=== PATIENT | female | born 1955 | race Two or more races ===

== ENCOUNTER 2019-11-25 07:49 | Inpatient (IN) | payer OTHER ==
[2019-11-25] VITALS (33 sets, daily range): BP systolic 99–155; BP diastolic 57–97
[~2019-11-25] VITALS: Ht 170.2 cm; Wt 103.0 kg
[~2019-11-25 07:49] MED LIST: ceFAZolin sod 1 GM in NS 55 ML IVPB ONE
[2019-11-25] MEDS ORDERED: fentaNYL 100 mcg/2 mL IV ONE ×2 (09:02→12:29)
[2019-11-25] MEDS ORDERED: Midazolam 2mg/2ml Inj ONE (09:02)
[2019-11-25] MEDS ORDERED: Rocuronium Bromide 50mg/5ml Inj IV ONE (09:36)
[2019-11-25] MEDS ORDERED: Succinylcholine 20mg/ml 10ml vial ONE (09:36)
[2019-11-25] MEDS ORDERED: Lidocaine 1% MPF 10mg/ml 5ml ONE (09:39)
[2019-11-25] MEDS ORDERED: Thrombin 5000 units TOPIC ONE ×3 (10:00→14:38)
[2019-11-25] MEDS ORDERED: Gelfoam Size TOPIC ONE (10:31)
[2019-11-25] MEDS ORDERED: Bupivacaine w/Epi 0.5% 30ml Vial INJ ONE (10:32)
[2019-11-25] MEDS ORDERED: Bacitracin 50000 Units Vial ONE (10:32)
[2019-11-25] MEDS ORDERED: Vancomycin 1gm vial IVPB ONE (10:32)
--- NOTE | 2019-11-25 10:59 | Anethesia Preoperative Eval ---
Anesthesia Pre-op PMH/ROS General Date of Evaluation: Nov 25, 2019 Time of Evaluation: 10:51 Anesthesiologist: Giuseppe ASA Score: ASA 2 Mallampati Score Class I : Soft palate, uvula, fauces, pillars visible Class II: Soft palate, uvula, fauces visible Class III: Soft palate, base of uvula visible Class IV: Only hard plate visible Mallampati Classification: Class II Surgeon: Dameon Diagnosis: Cervical radiculopathy Surgical Procedure: ACDF Anesthesia History: none Family History: no anesthesia problems Allergies: Coded Allergies: Morphine (Verified Allergy, Severe, Hallucinations, 11/25/19) Benadryl (Verified Allergy, Intermediate, Rash , 11/25/19) Codeine (Verified Allergy, Intermediate, Shortness of Breath nausea, ) Medications: see eMAR Patient NPO?: Yes Past Medical History Pulmonary: Denies: asthma, COPD, NEGRO, other Gastrointestinal/Genitourinary: Reports: GERD; Denies: CRI, ESRD, other Neurologic/Psychiatric: Reports: depression/anxiety, other - chronic pain; Denies: dementia, CVA, TIA Endocrine: Denies: DM, hypothyroidism, steroids, other HEENT: Denies: cataract (L), cataract (R), glaucoma, [place] (L), [place] (R), other Hematology/Immune: Denies: anemia, DVT, bleeding disorder, other Musculoskeletal/Integumentary: Reports: OA; Denies: RA, DJD, DDD, edema, other Other: obesity PMH Narrative: as above PSxH Narrative: Cervical spine fusion treatment for pelvic Fx and lower extremity trauma Anesthesia Pre-op Phys. Exam Physician Exam Last Vital Signs Date Time Temp Pulse Resp B/P (MAP) Pulse Ox O2 Delivery O2 Flow Rate FiO2 11/25/19 08:47 Room Air 11/25/19 08:43 97.1 69 18 121/79 (93) 96 Constitutional: NAD Neurologic: CN 2-12 intact Cardiovascular: RRR, no M/R/G Respiratory: CTA Gastrointestinal: S/NT/ND Airway Exam Mallampati Score: Class II MO: limited Neck: stiff ROM: limited Teeth: missing Dentures: no upper, no lower Anesthesia Pre-op A/P Labs see chart Studies Pre-op Studies: EKG - NSR, CXR - WNL Risk Assessment & Plan Assessment: ASA 2 Plan: GA with ETT, neuromonitoring Status Change Before Surgery: No Pre-Antibiotics Drug: Ancef 2gr. Given Within 1 Hr of Incision: Yes Time Given: 12:35 Geovani Chin MD Nov 25, 2019 10:59
[2019-11-25] MEDS ORDERED: LR 1000ml ONE (11:00)
[2019-11-25] MEDS ORDERED: Sterile Water Irrig 1000ml IRRIG ONE (11:00)
[2019-11-25] MEDS ORDERED: propofoL 1,000mg/100ml IV ONE (11:00)
[2019-11-25] MEDS ORDERED: Acetaminophen (Non formulary) 100 ML IV ONE (11:00)
--- NOTE | 2019-11-25 11:58 | Pre-Procedure Note/Attestation ---
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 I attest that, if there was a reasonable possibility of needing a blood transfusion, the patient (or the patient's legal financial services sales representative) was given the [facility] standardized written summary, pursuant to the Eric Oscar Blood Safety Act ([place] Health and Safety Code # 1645, as amended). I attest that I re-evaluated the patient just prior to the surgery and that there has been no change in the patient's H&P, except as documented below: Agapito Xiao MD Nov 25, 2019 11:58
[2019-11-25] MEDS ORDERED: Ketorolac 30mg Inj ONE (12:51)
[2019-11-25] MEDS ORDERED: Glycopyrrolate 0.2mg/ml 1ml Vial ONE (12:51)
[2019-11-25] MEDS ORDERED: NS Irrig 1000ml IRRIG ONE (13:11)
[2019-11-25] MEDS ORDERED: Heparin 5000 units/ml inj ONE (13:40)
[2019-11-25] MEDS ORDERED: Surgicel 4in x 8in TOPIC ONE (14:44)
[2019-11-25] MEDS ORDERED: Milk of Magnesia 30ml Ud ORAL PRN (15:00)
[2019-11-25] MEDS ORDERED: Omnipaque 350 100ml vial INJ PRN ×2 (15:30)
--- NOTE | 2019-11-25 16:42 | Brief Operative Note ---
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
[2019-11-25] MEDS ORDERED: Metoclopramide 10mg/2ml Inj IVP PRN (16:45)
[2019-11-25] MEDS ORDERED: LR 1000ml 1,000 ML IVLG SCH (17:11)
[2019-11-25] MEDS ORDERED: Midazolam 2mg/2ml Inj IVP PRN (17:15)
[2019-11-25] MEDS ORDERED: Hydromorphone 0.5mg/0.5ml inj IVP PRN (17:15)
--- NOTE | 2019-11-25 17:49 | Cardiology Progress Note ---
Assessment/Plan Assessment/Plan [id number] will infor about the preop meds not sure of the dose of steroid, she is reportedly taking may need stress dosing with hydrocortisone await ct results dr galvez will make determination wether he feel comfortable to keep pt her or if pt needs tranfer to [facility] he has been in contact [facility] potential receiving service at [facility] pt seems hemodynamically stable at the moment in the recovery room on a vent Objective Last 24 Hour Vital Signs Date Time Temp Pulse Resp B/P (MAP) Pulse Ox O2 Delivery O2 Flow Rate FiO2 11/25/19 17:23 69 15 125/74 100 Mechanical Ventilator 50 11/25/19 17:13 70 11 117/69 100 Mechanical Ventilator 50 11/25/19 17:03 70 10 115/70 100 Mechanical Ventilator 50 11/25/19 16:58 69 10 119/70 100 Mechanical Ventilator 50 11/25/19 16:53 50 11/25/19 16:53 98.1 68 10 138/79 100 Mechanical Ventilator 50 11/25/19 08:47 Room Air 11/25/19 08:43 97.1 69 18 121/79 (93) 96 Ronen Chaney MD Nov 25, 2019 17:49
[2019-11-25 18:14] LABS: BASOPHILS % (AUTO) 0.5 % (0.0-2.0); EOSINOPHILS % (AUTO) 0.4 % (0.0-3.0); HEMATOCRIT 38.2 % (37.0-47.0); HEMOGLOBIN 12.6 G/DL (12.0-16.0); LYMPHOCYTES % (AUTO) 9.8 % (20.0-45.0); MEAN CORPUSCULAR VOLUME 90 FL (80-99); MONOCYTES % (AUTO) 6.2 % (1.0-10.0); NEUTROPHILS % (AUTO) 83.2 % (45.0-75.0); PLATELET COUNT 193 K/UL (150-450); RED BLOOD COUNT 4.25 M/UL (4.20-5.40); RED CELL DISTRIBUTION WIDTH 13.5 % (11.6-14.8); WHITE BLOOD COUNT 15.9 K/UL (4.8-10.8)
--- NOTE | 2019-11-25 19:03 | Immediate Post-Op Evaluation ---
Immediate Post-Op Evalulation Immediate Post-Op Evalulation Procedure: REVISIN OF C4-C5 ACDF with hardwear removal and C5-6-7 fusion Date of Evaluation: Nov 25, 2019 Time of Evaluation: 17:02 IV Fluids: 1600 Blood Products: Albumin 250, PRBC 2 units, cell saver 250 Estimated Blood Loss: 1000 Urinary Output: 250 Blood Pressure Systolic: 124 Blood Pressure Diastolic: 76 Pulse Rate: 68 Respiratory Rate: 16 O2 Sat by Pulse Oximetry: 99 Temperature (Fahrenheit): 98.2 Pain Score (1-10): 1 Nausea: No Vomiting: No Complications None Patient Status: no response, ventilated, none Hydration Status: adequate Geovani Chin MD Nov 25, 2019 19:03
--- NOTE | 2019-11-25 20:00 | Operative Note - Dictated ---
DATE OF OPERATION: 11/25/2019 SURGEON: Agapito Xiao MD. CO-SURGEON: Mike Garcia MD, General Surgery. CLERK SUPERVISOR SURGEON: Tommy Medel PA-C. ANESTHESIA: Geovani Chin MD. ANESTHESIA TYPE: General endotracheal anesthesia. PREOPERATIVE DIAGNOSES: 1. Status post C4-C5 anterior cervical diskectomy and fusion. 2. Advanced discopathy C5-C6, C6-C7. POSTOPERATIVE DIAGNOSIS: 1. Status post C4-C5 anterior cervical diskectomy and fusion. 2. Advanced discopathy C5-C6, C6-C7 with left-sided vertebral artery breach. OPERATION PERFORMED: 1. Hardware removal, C4-C5. 2. Wide and radical diskectomy C5-C6 and C6-C7. 3. Partial corpectomy of C6 and C7 superior one-third. 4. Interbody fusion device structural placement. 5. Use of local autograft and Signafuse for fusion purposes. 6. Anterior instrumentation C5 through C7 using RTI plate. 7. Use of operating microscope. 8. Use of fluoroscopy. 9. Neurodiagnostic monitoring. ESTIMATED BLOOD LOSS: 1 liter. FLUIDS: 1600 mL of crystalloid, 250 mL albumin, 250 mL Cell Saver, 2 units packed red blood cells. COMPLICATIONS: Left-sided vertebral artery breach C5-C6. INDICATIONS: Patient is a very pleasant 64-year-old with fairly intractable neck pain, had previously undergone cervical fusion C4-C5 with advanced discopathy at C5-C6, C6-C7, early disc protrusions at C3-C4 and at C7-T1. The bulk of her pain clinically emanated from the C5, C6, C7 levels. After having failed conservative care, she elected surgical reconstruction. RISK NOTE: Patient was explained in detail risks, benefits of surgery to include, but not be limited to those of bleeding, infection, damage to nerves, vessels, tendons, anesthetic risk, allergic reaction, aspiration, possibly . Patient understood and wished to proceed. OPERATIVE PROCEDURE IN DETAIL: Patient was taken to the operating suite. After general endotracheal anesthesia was obtained, Yepez catheter was placed. She was positioned supine onto a radiolucent table. Bolsters were placed under her neck. Chin was strapped back. The prior incision was marked out. Needle was placed that was felt to be the C5-C6 interspace. At this point, fluoroscopically the level was marked. The neck was then prepped and draped in usual sterile fashion. A transverse incision was made on the right side from midline to approximately 5 cm lateral at/or about the C5-C6 interspace. At this point, the dissection was sharply carried down through subcutaneous. Platysma was incised perpendicular to the fibers. Interval medial the sternocleidomastoid was bluntly dissected. There was some scar formation along the proximal aspect of the incision. The distal most aspect was without scarring. Blunt dissection along the medial border of the sternocleidomastoid allowed for identification of the interval along the prevertebral fascia. Proximal scarring was encountered. At this point, self-retaining retractors were put in place. The pseudo capsule overlying the hardware at C4-C5 was visualized and the capsule was sharply dissected with a combination of Metzenbaum scissors as well as Bovie. The locking mechanism of the screw heads were then loosened along all 4 screws. The inferior portion of the plate had significant bony overgrowth and this was removed with a combination of high-speed drill as well as osteotomes. The screws were then easily backed out and the plate was removed. Bone wax was applied to all bleeding bone surfaces. The self-retaining retraction was then deployed more distally. Extensive bony overgrowth was encountered at the C5-C6 level. The overall anatomy was markedly distorted. Macclenny posts were placed at C5 and C6. High-speed drill was then utilized to drill out the highly advanced disc at the C5-C6 level. Dissection was carried out from the C5-C6 level and a partial superior corpectomy of C6 was performed. Dissection was carried out all the way to the posterior aspect of the anulus. At this point, while dissecting the lateral aspect to approach the neural foramen, a breach of the foramen transversarium was obtained and a breach of the left vertebral artery was noted. This area was immediately tamponaded. There was extensive bleeding from this area, which was highly indicative of a vertebral artery injury. This area was packed off with 0.5 inch x 3 inch cottonoid. At this point, we packed off this area and it gave us time to obtain additional peripheral access, obtain packed red blood cells, and to set up Cell Saver. A call was put into a vascular surgeon; however, they were at another hospital and not available. I was able to then contact Dr. Garcia from surgery/trauma and he was available and scrubbed in urgently into the surgery. At this time, we were then able to remove the packing and multiple attempts to gain control of the bleeding was deemed unsuccessful. Proximal and/or distal control of the vertebral artery could not be obtained and ligature could not be achieved. It was therefore elected to tamponade the vertebral artery on the left side. A primary repair could not be performed. At this point, a roll of Surgicel centrally packed with FloSeal and thrombin Gelfoam was made and multiple passes into the area adjacent to the lateral recess/lateral aspect of the disk space finally allowed for adequate tamponade of the bleeding of the vertebral artery. Once control of the bleeding was obtained, decision was made to proceed with the remainder of the procedure. At this point, a subtotal diskectomy and corpectomy was achieved. It was elected not to perform a neural foraminotomy on the right side for risk of potential vertebral artery injury that could have significant neurologic ramification. At this point, the dissection was carried out all the way to the posterior anulus. An appropriate size 8 mm medium-sized cage was chosen centrally packed with local autograft as well as Signafuse spacer was inserted. Attention was then applied to the C6-C7 level. Wide and radical diskectomy was achieved. Partial corpectomy of the superior portion of C7 was performed. Again, foraminotomies were not performed due to potential vascular injury. At this point, the 7 mm graft was inserted at the C6-C7 level. The overall bony anatomy was markedly distorted and with a use of a rongeur, the excessive osteophytes anteriorly were removed drilled down allowing for a healthy bed of bone. Once satisfied with a two-level fusion, an anterior plate was placed at C5, C6, and C7 was contoured. First, the middle 2 screws were inserted, then a screw in C7, then the screw in C5, then another screw in C7, and another screw in C5 to obtain adequate lordosis. Once satisfied with the final implant placement, fluoroscopic images demonstrated hardware and implants all in good position. Medium-sized Hemovac drain was placed deep to the fascia. Platysma was repaired using 3-0 Vicryl. Subcutaneous closure using 4-0 Vicryl. Prior to final closure, copious irrigation was achieved. The drain was sewn in with a 2-0 Vicryl. At this point, sterile dressing was applied. Sponge, needle counts were correct. At this time, while the patient was still intubated, she was transferred to CT scanner for CT angiogram of the neck and brain with a presumptive plan that if there is ongoing vascular injury and/or dissection that the patient would be transferred to a higher level of care for neurovascular embolization. If, however, the tamponade was effective, plan was to keep the patient intubated in the ICU for overnight monitoring and then extubation. This plan was formulated in combination with general surgeon as well as with vascular surgeon who was available by telephone. Agapito Lyndon Xiao DR: PASCUAL JOB#: [id number] CC:
[2019-11-25] MEDS: Hydromorphone 0.5mg/0.5ml inj IVP PRN (20:57)
--- NOTE | 2019-11-25 20:57 | NUR ---
NURSE NOTES: Pt had pain scale of FLACC 6 , Dilauded 0.5mg ivp was given, meds was re scanned under Dr Lemus Order, Aware Héctor pharmacist
[2019-11-25] MEDS ORDERED: oxyCODONE 5mg IR tab ORAL PRN (21:00)
[2019-11-25] MEDS ORDERED: Chloraseptic Spray 20mL Bottle ORAL PRN (22:00)
[2019-11-25] MEDS ORDERED: ceFAZolin sod 2 GM in D5W 110 ML IV SCH (22:00)
[2019-11-25] MEDS ORDERED: HydrOXYzine tab 25mg tab ORAL PRN (22:00)
[2019-11-25] MEDS: ceFAZolin 2gm/50ml Premix 50 ML IV SCH (22:05)
[2019-11-25] MEDS: D5 1/2NS 1,000 ML IV SCH (22:12)
--- NOTE | 2019-11-25 22:17 | NUR ---
NURSE NOTES: Message left for MD Miranda at this time. patient awake on the vent. Dilaudid given as ordered for pain but patient continues to complain of pain. awaiting call back.
--- NOTE | 2019-11-25 22:31 | NUR ---
NURSE NOTES: Message left for MD Xiao at this time for sedation. awaiting call back.
--- NOTE | 2019-11-25 22:40 | NUR ---
NURSE NOTES: MD Xiao Called back with orders to call MD Jane for sedations and Bernardo Miranda for Pain management.
--- NOTE | 2019-11-25 22:42 | NUR ---
NURSE NOTES: Called and spoke with MD Chaney at this time for sedation. Orders for Ativan 0.5mg IVP Q 6hrs PRN ordered at this time.
[2019-11-25] MEDS ORDERED: LORazepam Inj 2mg/ml 1ml IV PRN (22:45)
--- NOTE | 2019-11-25 23:02 | NUR ---
NURSE NOTES: Ativan 0.5mg ivp was given due to severe anxiety and agitation per Dr Murray order
[2019-11-26] VITALS (17 sets, daily range): BP systolic 94–152; BP diastolic 54–77
--- NOTE | 2019-11-26 | NUR ---
NURSE NOTES: Re called Dr Miranda awaiting for md to call back.
--- NOTE | 2019-11-26 01:00 | NUR ---
NURSE NOTES: Pt remained comfortable and sedated at this time. RT surgical anterior cervical drsg dry and intact. Hemovac to self suctioned with dark red drainage approximately 5ml/hr at this time. neuro check cont. assess q1-2 hr as well as hemovac drainage.
--- NOTE | 2019-11-26 03:20 | NUR ---
NURSE NOTES: MD Miranda called back at this time. Wants a dose of Dilaudid 0.5mg to be given at this time. PRn Dilaudid to be given Q2HRS now. Orders read back and confirmed at this time.
[2019-11-26] MEDS: Hydromorphone 0.5mg/0.5ml inj IVP PRN (03:25)
[2019-11-26] MEDS ORDERED: Hydromorphone 0.5mg/0.5ml inj IVP PRN ×2 (03:45→21:45)
[2019-11-26] MEDS: HYDROmorphone 1mg/ml Carpuject SUBQ PRN ×6 (03:54→23:47)
--- NOTE | 2019-11-26 03:54 | NUR ---
NURSE NOTES: A breakthrough pain Dilauded 1mg ivp was given by HERBERT Roy due to severe pain during loggrolll of the pt.
[2019-11-26] MEDS: ceFAZolin 2gm/50ml Premix 50 ML IV SCH ×2 (04:13→12:03)
--- NOTE | 2019-11-26 04:30 | NUR ---
NURSE NOTES: Dr Miranda called and updated [facility] pts condition. md was updated.no other ordrers given
[2019-11-26 04:35] LABS: BASOPHILS % (AUTO) 0.5 % (0.0-2.0); EOSINOPHILS % (AUTO) 0.7 % (0.0-3.0); HEMATOCRIT 36.8 % (37.0-47.0); HEMOGLOBIN 12.2 G/DL (12.0-16.0); LYMPHOCYTES % (AUTO) 24.8 % (20.0-45.0); MEAN CORPUSCULAR VOLUME 89 FL (80-99); MONOCYTES % (AUTO) 9.4 % (1.0-10.0); NEUTROPHILS % (AUTO) 64.5 % (45.0-75.0); PLATELET COUNT 186 K/UL (150-450); RED BLOOD COUNT 4.12 M/UL (4.20-5.40); RED CELL DISTRIBUTION WIDTH 13.1 % (11.6-14.8)
[2019-11-26 05:28] LABS: ALANINE AMINOTRANSFERASE 20 U/L (12-78); ALBUMIN 2.9 G/DL (3.4-5.0); ALBUMIN/GLOBULIN RATIO 1.2 (1.0-2.7); ALKALINE PHOSPHATASE 35 U/L (46-116); ANION GAP 8 mmol/L (5-15); ASPARTATE AMINO TRANSFERASE 15 U/L (15-37); BILIRUBIN,TOTAL 1.9 MG/DL (0.2-1.0); BLOOD UREA NITROGEN 14 mg/dL (7-18); CALCIUM 7.7 MG/DL (8.5-10.1); CARBON DIOXIDE 24 MMOL/L (21-32); CHLORIDE 108 MMOL/L (98-107); CREATININE 1.1 MG/DL (0.55-1.30); POTASSIUM 3.9 MMOL/L (3.5-5.1); SODIUM 140 MMOL/L (136-145)
--- NOTE | 2019-11-26 06:00 | NUR ---
NURSE NOTES: Neuro unchanged VSS. Pls see neuro check.
[2019-11-26 06:32] LABS: BILIRUBIN,DIRECT 0.2 MG/DL (0.0-0.3)
--- NOTE | 2019-11-26 07:15 | Consultation ---
DATE OF CONSULTATION: 11/26/2019 CONSULTING PHYSICIAN: Bernardo Miranda MD. REFERRING PHYSICIAN: Agapito Xiao MD. REASON FOR CONSULTATION: EMERGENCY acute post-operative pain management consultation. HISTORY OF PRESENT ILLNESS: Dr. Agapito Xiao, Thank you kindly for consulting me to evaluate and render an opinion as to how to proceed in the EMERGENT management of the patient's acute postoperative care after her revision cervical spine instrumentation surgery yesterday. You telephoned me, Dr. Xiao, regarding this patient who underwent a revision cervical spine instrumentation surgery after her work-related injury. The patient's revision cervical spine instrumentation surgery was complicated by intraoperative vertebral artery tear causing significant intraoperative bleeding. You determined intraoperatively that the safest & most-prudent course to proceed , would be to maintain the patient intubated for emergency diagnostic radiology imaging, then to follow with keeping the patient intubated in the intensive care unit overnight. The patient was very agitated while intubated in the intensive care unit while on full ventilatory support settings. Her increased agitation increased the risk for further complications. You consulted me for EMERGENCY POSTOPERATIVE PAIN MANAGEMENT CONSULTATION for this critically-ill hospital patient. I spoke with the intensive care unit, supercharger mechanic nurse, Chrissy and saw the patient at the bedside where I performed an examination. I reviewed the medical record in detail. This all occurred early at 4 a.m. in the morning postoperatively and it was impossible for me to contact the [employer] carrier technical adjuster for emergency consultation authorization. In order to provide proper emergent care to the patient in the intensive care unit, I went ahead and consulted on this patient on your request and we will seek retro-authorization from [employer] at a later date. PAST MEDICAL HISTORY: 1. Acute postoperative pain and agitation, status post revision cervical spine instrumentation surgery by Dr. Agapito Xiao on 11/25/2019, complicated by intraoperative bleed. 2. Work-related injury. 3. Moderate obesity. 4. Multiple drug allergies. PAST SURGICAL HISTORY: 1. Previous cervical spine instrumentation surgery in 2005. 2. In 2003 pelvis and left fibula and left tibia surgical repair. SOCIAL HISTORY: Patient has extended family. ALLERGIES: Codeine, Benadryl, morphine. REVIEW OF SYSTEMS: Per Dr. Chaney. MEDICATIONS: At home include prednisolone. PHYSICAL EXAMINATION: VITAL SIGNS: In the intensive care unit shows pulse 80, respirations 10, blood pressure 110/59, oxygen saturation 99% on 35% FiO2. GENERAL: Patient is agitated. Moving all extremities x4. NEUROLOGIC: Detailed neurologic exam deferred to spine surgeon, Dr. Xiao. ABDOMEN: Soft, nontender. CARDIOPULMONARY: Deferred to physician assistant certified, Dr. Chaney who is following the patient closely. DIAGNOSTIC TESTING: Postoperatively from 11/25/2019 shows white count 16, hematocrit 38, platelets 193. PREOPERATIVE LABORATORY STUDIES: From 11/24/2019 shows INR 1.0, PTT 23. Glucose 104, potassium 4.7, chloride 101, sodium 141, creatinine 0.9, BUN 20. Total protein 7.1, albumin 4.6. Alkaline phosphatase 41, AST 13, ALT 15, total bilirubin 1.0. Preoperatively shows white count 9, hematocrit 41, platelets 326. Preoperative 12-lead EKG shows normal sinus rhythm, ventricular rate 65. No evidence for acute cardiac ischemia dated 2019. Preoperative chest x-ray shows no acute cardiopulmonary process dated 11/20/2019. Pulmonary function testing 11/15/2019 shows mild restrictive lung disease. IMPRESSION: 1. Acute postoperative pain and agitation, status post revision cervical spine instrumentation surgery by Dr. Agapito Xiao on 11/25/2019, complicated by intraoperative bleed. 2. Work-related injury. 3. Moderate obesity. 4. Multiple drug allergies. TREATMENT RECOMMENDATIONS: To optimize this patient's safety postoperatively and to avoid self-extubation or neurologic compromise from pain and agitation, I instructed the intensive care unit nursing team to bolus the patient with IV Dilaudid. I have set up 2 different doses of Dilaudid 0.5 mg intravenously every 2 hours p.r.n. for moderate pain. I have ordered a double dose of 1 mg subcutaneous Dilaudid every 3 hours p.r.n. for severe breakthrough pain. Dr. Chaney started the patient on IV Ativan as an anxiolytic. We will alternate between these potent narcotic agents to optimize the sedation and safety. The patient has multiple drug allergies. We will avoid morphine, which has been listed as a drug allergy. Codeine also will be avoided. We will trial oxycodone instant release 5 mg orally every 3 hours p.r.n. once the patient is extubated. I will also start the patient on b.i.d. Pepcid 20 mg IV for GI ulcer prophylaxis. For GERD exacerbation, I have ordered Mylanta 30 mL q.6h. p.r.n. I have ordered Zofran 4 mg intravenously every 4 hours p.r.n. as a rescue antiemetic agent. The patient has an allergy to Benadryl, but Atarax may be tolerated and I have started 25 mg orally every 6 hours p.r.n. Additionally, parental Atarax/hydroxyzine might be available as well. In case of any headache complaints, I have ordered Fioricet tablets one orally every 8 hours p.r.n. I have asked the nurse team to provide Chloraseptic spray to the bedside in case of postoperative sore throat complaints. I will defer extubation protocol to the anesthesiologist. Sequential compression pneumatic boot devices have been ordered for DVT prophylaxis. Bernardo Miranda M.D. DR: JOSEE JOB#: [id number] [facility]DPrecious
--- NOTE | 2019-11-26 07:45 | NUR ---
HAND-OFF: Report given to Kailey GODINEZ. /Lilian GODINEZ.
[2019-11-26] MEDS: Docusate 100mg cap ORAL SCH ×2 (07:48→17:22)
--- NOTE | 2019-11-26 08:00 | NUR ---
NURSE NOTES: Surgical site dressing on right side anterior neck dry and intact. Minimal redness noted. Continued Ice pack on the site. Hemovac emptied and drained scant amount of sanguinous drainage.
--- NOTE | 2019-11-26 08:05 | NUR ---
NURSE NOTES: Patient received from Chrissie GODINEZ. Patient stable AOx4 Calm and cooperative and following commands. NSR on monitor at 72. RR even and unlabored on ET tube 7fr at 24cm lip line with vent settings AC 10, 600mL PEEP 0 FIO2 35% sao2 100%. Chest expansion and size normal. Peripheral IVs to LT hand and LT foot patent and intact. D5 1/2NS infusing at 100mL/hr. Restraints on with good ROM, sensation and circulation. Patient attempting to reach for ET tube. Yepez draining yellow urine at this time. Patient to continue NPO at this time. Patient able to reposition self. Side rails upx2, call light within reach, bed low and locked. Will continue to monitor. Addendum: 11/26/19 at 0932 by KASEY WEBB RN Patient AOx1. Addendum: 11/26/19 at 1735 by KASEY WEBB RN Surgical site also assessed at this time and dressing was found to be dry and intact. Hemovac is in place with minimal sanguinous output. Mild swelling and erythema noted. Ice pack in place.
--- NOTE | 2019-11-26 08:05 | Diagnostic Imaging Report ---
Indication: Neck pain, status post surgery, suspected vertebral artery injury Technique: IV administration nonionic contrast. Arterial phase spiral acquisitions obtained through the neck Multiplanar and 3-D reconstructions were generated. Total dose length product 673 mGycm. CTDIvol(s) one, 82, 17 mGy. Radiation dose was minimized using automated exposure control Comparison: none Findings: Anterior cervical spine fusion hardware traverses C5, C6, and C7. The hardware appears well aligned. There is also evidence of prior surgical fusion of C4-5, with ankylosis of the disc evident and a disc spacer remaining in place. There is gas within the soft tissues of the right side of the neck and also seen in the deep soft tissues, presumably retained air from the surgical exposure. A surgical drain is in place. The left vertebral artery is dominant. The right vertebral artery is smaller in caliber. Portions of both vertebral arteries are somewhat obscured due to streak artifact from the hardware. However, both appear to be intact, without evidence of occlusion, pseudoaneurysm, intimal flap, or contrast extravasation. Patent and intact nonstenotic right brachiocephalic, proximal subclavian, and common carotid artery. Patent nonstenotic proximal internal carotid artery. Patent and intact nonstenotic left common carotid artery. Patent and intact nonstenotic left subclavian artery proximally. Both internal jugular veins appear patent without evidence of significant injury. Endotracheal tube has its tip within the proximal right mainstem bronchus. The thyroid demonstrates diffuse nodularity. No cervical mass or adenopathy. Considerable opacity in the posterior nasopharynx likely relates to the presence of the endotracheal tube. There is minimal bilateral maxillary sinus mucosal thickening. There is ethmoid sinus mucosal thickening. The visualized intracranial structures are unremarkable. The orbits are unremarkable. The included lung apices demonstrate some linear interstitial edema as well as thickening versus fluid within the bilateral major fissures. There is also posterior dependent atelectatic change. Impression: No evidence of significant cervical arterial injury Postsurgical changes, as described Low position of endotracheal tube, tip within the right mainstem bronchus origin. Withdrawal by 2 to 3 cm recommended. Sinus disease Bilateral pulmonary edema versus infiltrates. Fluid within the major fissures. Dependent pulmonary atelectatic changes Findings discussed by phone with Dr. Xiao on 11/25/[address] scanner at [facility] is accredited by the [employer] and the scans are performed using protocols designed to limit radiation exposure to as low as reasonably achievable to attain images of sufficient resolution adequate for diagnostic evaluation.
--- NOTE | 2019-11-26 08:36 | 48 Hour Post Anesthesia Eval ---
Post Anesthesia Evaluation Procedure: REVISIN OF C4-C5 ACDF with hardwear removal and C5-6-7 fusion Date of Evaluation: Nov 26, 2019 Time of Evaluation: 08:33 Blood Pressure Systolic: 124 0: 56 Pulse Rate: 72 Respiratory Rate: 20 Temperature (Fahrenheit): 97.6 O2 Sat by Pulse Oximetry: 99 Airway: other - orally intubated on pressure support Nausea: No Vomiting: No Pain Intensity: 1 Hydration Status: adequate Cardiopulmonary Status: stable Mental Status/LOC: patient returned to baseline Follow-up Care/Observations: awake follows commands moves all extremities, ready for extubation Post-Anesthesia Complications: None from anesthesia side Follow-up care needed: N/A Geovani Chin MD Nov 26, 2019 08:36
--- NOTE | 2019-11-26 08:48 | NUR ---
NURSE NOTES: Radiologist called and recommended that ETT should be withdrawn 2-3cm. Notified RT. Mindi Wen here to see the patient. Notified her regarding CT of the neck result. Order for weaning protocol received, noted, and carried out. Notified RT.
[2019-11-26] MEDS: D5 1/2NS 1,000 ML IV SCH ×3 (08:56→21:54)
--- NOTE | 2019-11-26 08:59 | NUR ---
RESPIRATORY NOTES Per Kiran WINN order, ET tube to be withdrawn 2cm - 24cm at the lip to 22cm at the lip. PT then to be placed on CPAP with PS8. HERBERT serna.
--- NOTE | 2019-11-26 09:00 | NUR ---
NURSE NOTES: Patient signaled that pain is 10/10. Dilaudid 1mg SQ given.
--- NOTE | 2019-11-26 09:07 | NUR ---
RESPIRATORY NOTES ET tube has been withdrawn 2cm and is currently at 22cm at the lip. PT has been placed on CPAP 0, PS 8, 35%. PT is tolerating CPAP mode well with no signs of respiratory distress - SaO2 100%. HERBERT Serrano aware. Will continue to monitor.
--- NOTE | 2019-11-26 09:11 | NUR ---
NURSE NOTES: RT withdrew ET tube 2cm and changed settings to CPAP with pressure setting at 8. Patient tolerating well with RR even and unlabored sating 100%.
--- NOTE | 2019-11-26 09:39 | NUR ---
P.T Note: Pt was transferred to ICU S/P C-spines surgery. P.T evaluation and mobilization not appropriate at this time as pt is currently intubated. P.T will proceed when extubated and medically stable.
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
[2019-11-26] MEDS ORDERED: Tubing IV Secondary IV ONE (10:17)
--- NOTE | 2019-11-26 10:54 | NUR ---
BARTENDER NOTE Pt is currently on vent. PT was able to make eye contact, uses her fingers and hands to communicate with this SW. PT reports she was staying at her friend's place prior to admission. Pt has 4 children and they are all estranged. PT reports there is no family member in contact. Pt's emergency contact is her friend, Omid Hammonds [phone]. Per pt, Omid does not know any information on her children. Pt denies substance abuse. Pt reports she is the self decision maker. Pt has no AD/POA. Pt also shares she has a place to go when she is medically stable. SW to F/U as needed.
--- NOTE | 2019-11-26 11:25 | NUR ---
NURSE NOTES: Spoke with Dr. Cody who stated patient appears stable for extubation. Order received for ABG first to be drawn then to contact him for extubation orders.
--- NOTE | 2019-11-26 11:45 | NUR ---
NURSE NOTES: Patient extubated at 1140 and placed on 3L NC. RR even and unlabored. RR at 15 and O2 sat at 100%. Will continue to monitor. Addendum: 11/26/19 at 1305 by KASEY WEBB RN Correction: Patient extubated at 1240. Restraints discontinued at the same time of extubation at 1240.
--- NOTE | 2019-11-26 11:47 | NUR ---
NURSE NOTES: Dr Cody here to see the patient. Updated him with patient's current condition. Notified him regarding ABG result. Order for extubation received, noted, and carried out. Notified RT.
--- NOTE | 2019-11-26 12:40 | NUR ---
RESPIRATORY NOTES: Per doctor's orders, PT has been extubated and placed on 3L NC. PT denies any respiratory distress - SaO2 100% HERBERT Serrano aware. Will continue to monitor.
--- NOTE | 2019-11-26 13:00 | NUR ---
NURSE NOTES: HOB elevated to 30 degrees.
--- NOTE | 2019-11-26 14:47 | NUR ---
NURSE NOTES: Patient sleeping comfortably. VSS. No s/sx of pain or distress at this time. Will reassess pain again and offer pain medication as necessary once patient is awake.
--- NOTE | 2019-11-26 14:50 | Diagnostic Imaging Report ---
INDICATION: Pain, intraoperative TECHNIQUE: Intraoperative imaging Fluoroscopy time: 20.9 and 9.7 seconds Total dose: 0.95407 and 0.25305 mGym2 Total number of images: 10 COMPARISON: None FINDINGS: Intraoperative images demonstrate surgical tool projected over the inferior aspect of the C5 vertebral body. Subsequent images demonstrate placement of anterior fusion hardware and disc spacers bridging C5, C6, and C7. IMPRESSION: Intraoperative imaging, as described
--- NOTE | 2019-11-26 15:30 | Consultation ---
DATE OF CONSULTATION: 11/25/2019 CARDIOLOGY CONSULTATION CONSULTING PHYSICIAN: Ronen Chaney MD REFERRING PHYSICIAN: Agapito Xiao MD REASON FOR REFERRAL: Postoperative medical care. HISTORY OF PRESENT ILLNESS: This is a 64-year-old unfortunate female who is unable to provide any meaningful history. The patient was admitted to the operating room and underwent an ACDF, partial corpectomy C5 through C7 and complicated by left vertebral artery breach, lost some blood and received 2 units of packed red cells, 250 mL of saline, and 250 mL of albumin. The patient was subsequently taken to the recovery room. Movement of the arms on the side of surgery was assured by Dr. Xiao and the patient was transferred to the CT scan for urgent CT angiography, the results of which are pending at this time. On my evaluation, the patient is on ventilator in the recovery room. The patient denies any chest pain. Does have pain in her neck. She does not have any dizziness or shortness of breath. Remainder of review of systems is not able to obtain. PAST MEDICAL HISTORY: According to the patient's chart, does not appear to be any significant medical problems here. PAST SURGICAL HISTORY: She has a significant surgical history including pelvis, tibia, fibula with C3-C4 fusion in 2005. MEDICATIONS: Her medication prior to admission include prednisolone, unfortunately the dosage of which is really not clear to me. FAMILY HISTORY: Father . Mother . Three sisters healthy. Three sons and one daughter healthy. Family history of skin cancer. SOCIAL HISTORY: Nonsmoker. ALLERGIES: To morphine, Benadryl, codeine, and . REVIEW OF SYSTEMS: Unable to obtain. PHYSICAL EXAMINATION: GENERAL: Shows to be a middle-aged female, in no respiratory distress. She is on a mechanical ventilator at the present time. Awake and responsive. VITAL SIGNS: Her blood pressure is 120s over 70s with heart rates in the 70s as well. LUNGS: Anteriorly appeared to be clear. She has a DAVID drain on the right side from the neck. Lungs anteriorly to the sides are clear. CARDIAC: Regular rate and rhythm. No heaves or thrills. ABDOMEN: Soft, obese. Positive bowel sounds. EXTREMITIES: No edema. She has pneumatic compression stockings in place and she has an IV running in the left. LABORATORY DATA: Her labs are only available from preoperatively for her preop evaluation. Preop laboratories were reviewed. Urinalysis appeared clear. INR of 1, PTT of 23. Sugar 104, sodium 141, potassium 4.7, chloride 101, bicarb of 25, BUN 20, creatinine 0.89. WBC of 9.3, hemoglobin 13.7, and platelet count 326. A1c was 6. TSH of 2.5. was 5. ASSESSMENT AND PLAN: 1. Status post C4-C5 ACD with discopathy of C5, C6, C7. 2. Left vertebral artery breach during surgery. 3. Multiple drug allergies. This patient was seen in cardiac and medicine consultation. The patient is on a mechanical ventilator, intubated. The plan is for observation. Results of CT scan is pending. Dr. Xiao will make a determination if he feels comfortable with the final CT scan to keep the patient here or whether to transfer the patient for a higher level of care to [facility]. He has already contacted the receiving doctors over at [facility]. The patient will be kept on the ventilator overnight for airway protection and hope to extubate tomorrow if she stays. We will need to have some laboratories if she stays here including CBC and other laboratories. She is hemodynamically quite stable and appears to be moving all her extremities well spontaneously and to commands. Await results of the CT scan findings. Ronen Chaney M.D. DR: CHARLES JOB#: [id number] CC:
--- NOTE | 2019-11-26 16:00 | NUR ---
NURSE NOTES: Patient reported headache which she believes is due to not eating. Patient educated that it may be due to HOB elevation. HOB decreased to 0 degrees but patient unable to tolerate. HOB raised to 10 degrees. Will reassess.
--- NOTE | 2019-11-26 16:11 | NUR ---
NURSE NOTES: Patient complaining of 8/10 pain. Dilaudid 1mg given SQ. On reassessment, pain is now 2/10. Hemovac 0mL output. VSS.
--- NOTE | 2019-11-26 16:41 | NUR ---
CASE MANAGEMENT: REVIEW 64 YEAR OLD FEMALE CC: SI: CERVICAL RADICULOPATHY S/P C4-C5 ACD WITH DISCOPATHY OF C5, C6, C7 11/24 T 97.1 HR 69 RR 18 BP 121/79 SAT 100% MECH VENT FIO2 WBC 15.9 IS: FENTANYL IV X1 PROPOFOL IV X1 ALBUMIN IV X1 VERSED IV X1 CEFAZOLIN IV X1 PATIENT ADMITTED TO ICU 11/25/2019 DCP: PATIENT IS FROM HOME
--- NOTE | 2019-11-26 16:50 | NUR ---
INSURANCE REVIEWS/CLINICALS NANNETTE Santos @ [facility]#[phone] FAX#[phone]
--- NOTE | 2019-11-26 16:51 | NUR ---
CASE MANAGEMENT: DCP PER NANNETTE JARAMILLO [phone] PATIENT WILL NEED TRANSPORTATION HOME PROVIDED BY [facility] [phone]
--- NOTE | 2019-11-26 17:22 | NUR ---
NURSE NOTES: Patient having very difficult time swallowing. Only able to have 1 ice chip at a time. Unsafe to administer colace PO at this time will hold at this time.
--- NOTE | 2019-11-26 18:20 | NUR ---
NURSE NOTES: Patient given Dilaudid 0.5 IVP for pain reported 5/10 prior to patient cleaning and repositioning. Oral care performed at this time. Ice chips given. IV fluids hung. Yepez drained and 1300mL removed with only 35mLs for the last hour. Environmental hygiene performed.
--- NOTE | 2019-11-26 18:41 | Orthopedic Spine Progress Note ---
Ortho Spine - Progress Note Subjective Symptoms: c/o post-op neck pain, improved - as compared to pre-op Additional Comments: PT was extubated earlier today Objective Vital Signs: Last 24 Hour Vital Signs Date Time Temp Pulse Resp B/P (MAP) Pulse Ox O2 Delivery O2 Flow Rate FiO2 11/26/19 16:00 Nasal Cannula 3.0 11/26/19 16:00 3.0 11/26/19 15:36 75 11/26/19 12:40 Nasal Cannula 3.0 11/26/19 12:40 100 11/26/19 12:00 75 11/26/19 12:00 Mechanical Ventilator 11/26/19 10:41 74 10 11/26/19 09:07 79 10 11/26/19 09:00 35 11/26/19 08:48 80 20 35 11/26/19 08:36 72 20 99 11/26/19 08:00 79 11/26/19 08:00 Mechanical Ventilator 11/26/19 08:00 35 11/26/19 07:06 77 16 35 11/26/19 06:30 68 12 11/26/19 05:15 68 10 35 11/26/19 04:00 35 11/26/19 04:00 74 11/26/19 04:00 Mechanical Ventilator 11/26/19 02:38 80 10 35 11/26/19 00:58 81 12 40 11/26/19 00:15 78 11 110/59 (76) 99 11/26/19 00:00 Mechanical Ventilator 11/26/19 00:00 77 11/26/19 00:00 40 11/26/19 00:00 99.0 79 10 104/65 (78) 98 11/25/19 23:45 78 10 110/66 (81) 98 11/25/19 23:30 79 10 106/64 (78) 99 11/25/19 23:15 79 10 107/66 (80) 99 11/25/19 23:00 81 10 103/67 (79) 100 11/25/19 22:50 89 24 40 11/25/19 22:45 85 13 138/75 (96) 100 11/25/19 22:30 109 11 155/71 (99) 100 11/25/19 22:15 74 11 137/64 (88) 100 11/25/19 22:00 65 11 120/65 (83) 100 11/25/19 21:45 63 11 105/65 (78) 100 11/25/19 21:30 63 11 114/97 (103) 100 11/25/19 21:15 62 11 112/70 (84) 100 11/25/19 21:00 63 11 115/67 (83) 100 11/25/19 20:45 66 13 106/65 (79) 100 11/25/19 20:30 63 13 104/70 (81) 100 11/25/19 20:15 81 13 121/69 (86) 100 11/25/19 20:13 40 11/25/19 20:13 Mechanical Ventilator 11/25/19 20:05 69 14 50 11/25/19 20:00 13 120/70 (87) 100 11/25/19 19:50 65 16 100/58 100 Mechanical Ventilator 50 11/25/19 19:50 50 11/25/19 19:45 98.0 13 120/70 (87) 100 11/25/19 19:35 97.9 65 12 99/59 100 Mechanical Ventilator 50 11/25/19 19:20 65 10 100/57 100 Mechanical Ventilator 50 11/25/19 19:08 66 10 110/64 100 Mechanical Ventilator 50 11/25/19 19:03 68 16 99 11/25/19 18:53 70 10 114/72 100 Mechanical Ventilator 50 11/25/19 18:38 67 10 111/65 100 Mechanical Ventilator 50 I&O: Intake and Output 11/25/19 11/26/19 19:00 07:00 Intake Total 2700 ml 1300 ml Output Total 1200 ml 620 ml Balance 1500 ml 680 ml Intake Oral 0 ml IV Total 1600 ml 1300 ml Blood Product 600 ml Other 500 ml Output Urine Total 200 ml 570 ml Drainage Total 50 ml Estimated Blood Loss 1000 ml # Voids 1 Wound: clean, intact Drains: hemovac Neuro Status: stable Assessment Procedure Performed: ACDF partial corpectomies C5-7, HWR c45 Plan Plan: PT, pain management, d/c antibiotics, d/c drain, other - dc ellis, start PT, transfer to Agapito Xiao MD Nov 26, 2019 18:41
--- NOTE | 2019-11-26 18:41 | NUR ---
NURSE NOTES: Dr. Xiao at bedside. Updated on patient condition. Dressing and Hemovac removed by MD. Dressing reapplied using 2x2 and tegaderm to cover dermabond. Yepez discontinued with 85mLs in container. IV to LT foot discontinued as ordered.
--- NOTE | 2019-11-26 19:06 | NUR ---
NURSE HAND-OFF REPORT: Latest Vital Signs: Temperature 97.6 , Pulse 75 , B/P 124 /56 , Respiratory Rate 10 , O2 SAT 100 , Nasal Cannula, O2 Flow Rate 3.0 . Vital Sign Comment: Stable EKG Rhythm: Sinus Rhythm Rhythm change?: N MD Notified?: N/A MD Response: N/A Latest Kee Fall Score: 35 Fall Risk: Medium Risk Safety Measures: Call light Within Reach, Bed Alarm Zone 2, Side Rails Side Rails x2, Bed position Low and Locked. Fall Precautions: Yellow Socks Yellow Gown Door Sign Patient Fall Education Report given to Hodan GODINEZ. Endorsed that order was received to transfer patient to [facility]. Per nursing traffic supervisor, Amor, transfer patient after shift change.
--- NOTE | 2019-11-26 19:07 | NUR ---
NURSE NOTES: Patient received from German and HERBERT Quintana. patient awake alert oriented x4. respirations shallow with thick oral secretions noted on 3L NC. BP 115/62 HR74 NSR on monitor. PIV left hand #18 running D5 1/2 NS @100ml/hr clean and asymptomatic. skin warm dry with cervical laminectomy dressing clean and intact. IS at bedside, educated patient on using IS. patient placed on bedpan to void.
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
[2019-11-26] MEDS ORDERED: LORazepam Inj 2mg/ml 1ml IV PRN (21:45)
--- NOTE | 2019-11-26 21:47 | NUR ---
NURSE HAND-OFF REPORT: Latest Vital Signs: Temperature 98.9 , Pulse 81 , B/P 131 /69 , Respiratory Rate 20 , O2 SAT 100 , Nasal Cannula, O2 Flow Rate 3.0 . Vital Sign Comment: WNL EKG Rhythm: Sinus Rhythm Rhythm change?: N MD Notified?: - MD Response: Latest Kee Fall Score: 35 Fall Risk: Medium Risk Safety Measures: Call light Within Reach, Bed Alarm Zone 2, Side Rails Side Rails x2, Bed position Low and Locked. Fall Precautions: Yellow Socks Yellow Gown Door Sign Patient Fall Education Report given to HERBERT Samuels. patient transferred to [facility], with patient belongings in bag with patient.
[2019-11-26] MEDS ORDERED: Chloraseptic Spray 20mL Bottle ORAL PRN (22:00)
[2019-11-27] MEDS: HYDROmorphone 1mg/ml Carpuject SUBQ PRN ×4 (04:00→23:31)
[2019-11-27 04:16] VITALS: BP 129/71
[2019-11-27] MEDS: D5 1/2NS 1,000 ML IV SCH (06:02)
[2019-11-27] MEDS: oxyCODONE 5mg IR tab ORAL PRN ×4 (06:02→21:56)
--- NOTE | 2019-11-27 07:03 | Pain Management Progress Note ---
Allergies: Coded Allergies: MORPHINE (Verified Allergy, Severe, Hallucinations, 11/25/19) CODEINE (Verified Allergy, Intermediate, Shortness of Breath nausea, ) DIPHENHYDRAMINE (Verified Allergy, Intermediate, Rash , 11/25/19) Vitals Vital Signs Date Time Temp Pulse Resp B/P (MAP) Pulse Ox O2 Delivery O2 Flow Rate FiO2 11/27/19 04:30 98.6 11/27/19 04:16 98.6 78 18 129/71 (90) 95 11/26/19 23:59 98.7 80 20 121/64 (83) 97 Medications Current Medications Medications (Trade) Dose Ordered Sig/Barbie Route PRN Reason Start Time Stop Time Status Last Admin Dose Admin Acetaminophen/ Butalbital/ Caffeine (Fioricet) 1 tab Q8H PRN ORAL headache 11/26/19 23:00 12/25/19 14:59 Al Hydroxide/Mg Hydroxide (Mylanta) 30 ml Q6H PRN ORAL gerd 11/26/19 22:00 12/26/19 21:59 Clonidine HCl (Catapres Tab) 0.1 mg Q8H PRN ORAL For High Blood Pressure 11/26/19 22:00 02/23/20 21:59 Dextrose/Sodium Chloride 1,000 ml @ 100 mls/hr Q10H IV 11/26/19 21:45 12/25/19 21:59 11/27/19 06:02 Docusate Sodium (Colace) 100 mg TWICE A DAY ORAL 11/27/19 09:00 12/26/19 08:59 Famotidine (Pepcid I.v.) 20 mg Q12HR IVP 11/27/19 09:00 12/26/19 05:14 Hydromorphone HCl (Dilaudid) 0.5 mg Q2H PRN IVP Moderate Pain (Pain Scale 4-6) 11/26/19 21:45 12/03/19 03:44 Hydromorphone HCl (Dilaudid) 1 mg Q3H PRN SUBQ Severe Breakthru Pain (>7) 11/26/19 23:00 12/03/19 22:59 11/27/19 04:00 Hydroxyzine HCl (Atarax) 25 mg Q6H PRN ORAL Itching 11/26/19 22:00 12/25/19 21:59 Lorazepam (Ativan 2mg/ml 1ml) 0.5 mg Q6H PRN IV For Anxiety 11/26/19 21:45 12/02/19 21:44 Magnesium Hydroxide (Mom) 30 ml DAILYPRN PRN ORAL Constipation 11/26/19 21:45 12/26/19 21:44 Ondansetron HCl (Zofran) 4 mg Q4H PRN IVP Nausea & Vomiting 11/26/19 22:00 12/25/19 21:59 Oxycodone HCl (Roxicodone) 5 mg Q3H PRN ORAL Mild Pain (Pain Scale 1-3) 11/26/19 22:00 12/03/19 21:59 11/27/19 06:02 Phenol/Menthol (Chloraseptic) 1 spray Q2H PRN ORAL sore throat 11/26/19 22:00 02/24/20 21:59 Temazepam (Restoril) 15 mg HSPRN PRN ORAL Insomnia 11/26/19 22:00 12/02/19 21:59 Laboratory Laboratory Tests 11/26/19 11:30: Arterial Blood pH 7.402, Arterial Blood Partial Pressure CO2 32.3L, Arterial Blood Partial Pressure O2 108.9H, Arterial Blood HCO3 19.6L, Arterial Blood Oxygen Saturation 97.3, Arterial Blood Base Excess -4.2L, Jeremiah Test Positive Plan: Patient seen with nursing team. Discussed with surgeon Dr Xiao. Wound site dressing appears clean and dry. Pain level 6 / 10 on the visual-analog pain scale. MAR medication list reviewed. One mg SQ dilaudid working very well; I will d/c the IV dose. Pt has multiple narcotic allergies, but states that oxycodone has been tolerated in the past without significant adverse side effects. I asked the RN Vilma to dose the patient with oxy-IR 5 mg to test for tolerability & efficacy. Will add prn 10 mg dose as well, to help wean-off parenteral narcotics. Chloraseptic spray ordered to the bedside to aid with painful swallowing. No nausea. Denies emesis. Depending on swallowing, will trial soft diet as tolerated. Pt IS able to swallow liquids without troubles, so hopefully Dr. Chaney will heplock IV fluids soon to ease moving in and out bed. GI: +BS + flatus No BM Considerable phlegm after 24-hour intubation. Pt has suction at bedside, & is able to self-suction prn. Encourage incentive spirometer usage. Coughing from IS usage does cause significant pain; pt understands to request pain medications to enable compliant incentive spirometer usage. Encourage advancing ambulation with physical therapy as tolerated;; PT will likely start later this morning. Pt has not yet been out of bed, and is voiding well using bedpan. SCDs for mechanical prophylaxis against deep venous thrombosis and PEs. Discussed discharge planning with surgeon to help expedite hospital discharge. Pt lives ALONE; unclear if pt can return home alone, or may need txfr to rehab facility after complicated hospital stay. Rx left for outpatient pain medication usage for #50 Percocet . Bernardo Miranda MD Nov 27, 2019 07:03
[2019-11-27] MEDS ORDERED: Chloraseptic Spray 20mL Bottle ORAL SCH (07:10)
--- NOTE | 2019-11-27 07:25 | NUR ---
NURSE NOTES: WALKING ROUNDS DONE WITH OUTGOING RN. PATIENT AWAKE IN BED HAVING BREAKFAST. AOX4. DENIES SURGICAL PAIN AT THIS TIME. SITE C/D/I. NO EDEMA PRESENT OR S/S/ INFECTION TO SURGICAL SITE NOTED.PATIENT STATES SWALLOWING IS IMPROVING. DISCUSSED PLAN OF CARE FOR THE DAY,VERBALIZED UNDERSTANDING.BED IN LOW AND LOCKED POSITION, BED ALARM ON, CALL LIGHT WITHIN REACH.
--- NOTE | 2019-11-27 07:34 | NUR ---
HAND-OFF: Report given to HERBERT Landers.
[2019-11-27 08:00] VITALS: BP 135/74
[2019-11-27] MEDS ORDERED: Chloraseptic Spray 20mL Bottle ORAL PRN (08:00)
[2019-11-27] MEDS ORDERED: Docusate 100mg cap ORAL SCH (09:00)
--- NOTE | 2019-11-27 09:26 | Orthopedic Spine Progress Note ---
Ortho Spine - Progress Note Subjective Symptoms: c/o post-op neck pain, improved - as compared to pre-op Objective Vital Signs: Last 24 Hour Vital Signs Date Time Temp Pulse Resp B/P (MAP) Pulse Ox O2 Delivery O2 Flow Rate FiO2 11/27/19 08:00 99.1 77 20 135/74 (94) 97 11/27/19 04:30 98.6 11/27/19 04:16 98.6 78 18 129/71 (90) 95 11/26/19 23:59 98.7 80 20 121/64 (83) 97 11/26/19 20:13 3.0 11/26/19 20:00 3.0 11/26/19 20:00 Nasal Cannula 3.0 11/26/19 20:00 98.9 81 20 131/69 (89) 100 11/26/19 20:00 77 11/26/19 19:00 74 14 115/62 (79) 99 11/26/19 18:00 75 15 116/71 (86) 100 11/26/19 17:00 74 10 122/70 (87) 98 11/26/19 16:00 98.6 73 13 100/54 (69) 100 11/26/19 16:00 Nasal Cannula 3.0 11/26/19 16:00 3.0 11/26/19 15:36 75 11/26/19 15:00 73 12 120/67 (84) 99 11/26/19 14:00 73 12 108/60 (76) 98 11/26/19 13:00 73 12 94/63 (73) 100 11/26/19 12:40 Nasal Cannula 3.0 11/26/19 12:40 3.0 11/26/19 12:40 100 11/26/19 12:00 99.3 78 11 123/67 (85) 100 11/26/19 12:00 35 11/26/19 12:00 75 11/26/19 12:00 Mechanical Ventilator 11/26/19 11:00 72 9 116/70 (85) 100 11/26/19 10:41 74 10 11/26/19 10:00 75 11 117/69 (85) 100 I&O: Intake and Output 11/26/19 11/27/19 19:00 07:00 Intake Total 1156.6666 ml 1600 ml Output Total 1425 ml Balance -268.3334 ml 1600 ml Intake Oral 600 ml IV Total 1156.6666 ml 1000 ml Output Urine Total 1415 ml Drainage Total 10 ml # Voids 5 Wound: clean, intact Drains: none Neuro Status: stable Assessment Procedure Performed: ACDF partial corpectomies C5-7, HWR c45 Plan Plan: PT, pain management, d/c antibiotics, discharge plan Agapito Xiao MD Nov 27, 2019 09:26
[2019-11-27] MEDS: Docusate 100mg cap ORAL SCH ×2 (09:35→18:12)
--- NOTE | 2019-11-27 09:48 | Diagnostic Imaging Report ---
Indication: Cough Technique: One view of the chest Comparison: none Findings: The right hemidiaphragm is elevated. The lungs and pleural spaces are otherwise clear. Surgical hardware is seen in the lower cervical spine. Impression: No acute process
--- NOTE | 2019-11-27 11:13 | NUR ---
RADIOLOGY DEPT., CHEST X-RAY DONE.-P.DYE
[2019-11-27 12:00] VITALS: BP 116/66
--- NOTE | 2019-11-27 12:54 | NUR ---
Discharge planning CM reach out to coordinator NANNETTE Santos @ [facility]#[phone] Nannette will reach out to adjustor for placement needs (Shannan Bowles) Nannette will communicate with adjustor and plan accordingly Addendum: 11/27/19 at 1350 by KO GARCÍA LVN CM reached out to Nannette again who spoke saida/ Vandana Ferrara CM to discuss facility patient can be placed
--- NOTE | 2019-11-27 14:36 | NUR ---
P.T Note: P.T evaluation completed and tx initiated per spinal protocol. Please refer to P.T evaluation for current functional status.
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
[2019-11-27] MEDS: HydrOXYzine tab 25mg tab ORAL PRN (15:04)
--- NOTE | 2019-11-27 15:11 | NUR ---
NAPHTHALENE OPERATOR NOTES SPOKE WITH NANNETTE FROM THE INSURANCE COMPANY MADE AWARE OF DC PLANNING. PER NANNETTE WILL EMAIL A LIST OF CONTRACTED FACILITIES FOR PLACEMENT. WAITING FOR THE LIST. WILL FOLLOW UP.DCP ONGOING. PACKET FAXED TO NANNETTE FOR ASSISTANCE. NANNETTE [phone] (P) [phone] (f)
--- NOTE | 2019-11-27 15:49 | Pulmonology Progress Note ---
Mindi Wen CAUSTICISER 11/27/19 1549: Subjective Allergies: Coded Allergies: MORPHINE (Verified Allergy, Severe, Hallucinations, 11/25/19) CODEINE (Verified Allergy, Intermediate, Shortness of Breath nausea, ) DIPHENHYDRAMINE (Verified Allergy, Intermediate, Rash , 11/25/19) Subjective POD #2 extubated 11/25 on [facility] floor Yepez dc 11/25 , voiding w/out difficulties drain dc by surgeon no resp distress, now on o2 via NC, pulse ox stable pain controlled denies CP, SOB Objective Last 24 Hour Vital Signs Date Time Temp Pulse Resp B/P (MAP) Pulse Ox O2 Delivery O2 Flow Rate FiO2 11/27/19 15:03 97.8 11/27/19 12:00 97.8 72 18 116/66 (83) 97 11/27/19 09:00 Simple Mask 3.0 11/27/19 08:00 99.1 77 20 135/74 (94) 97 11/27/19 04:16 98.6 78 18 129/71 (90) 95 11/26/19 23:59 98.7 80 20 121/64 (83) 97 11/26/19 20:13 3.0 11/26/19 20:00 3.0 11/26/19 20:00 Nasal Cannula 3.0 11/26/19 20:00 98.9 81 20 131/69 (89) 100 11/26/19 20:00 77 11/26/19 19:00 74 14 115/62 (79) 99 11/26/19 18:00 75 15 116/71 (86) 100 11/26/19 17:00 74 10 122/70 (87) 98 11/26/19 16:00 98.6 73 13 100/54 (69) 100 11/26/19 16:00 Nasal Cannula 3.0 11/26/19 16:00 3.0 Intake and Output 11/26/19 11/27/19 19:00 07:00 Intake Total 1156.6666 ml 1600 ml Output Total 1425 ml Balance -268.3334 ml 1600 ml Intake Oral 600 ml IV Total 1156.6666 ml 1000 ml Output Urine Total 1415 ml Drainage Total 10 ml # Voids 5 Objective General Appearance: awake, alert, obese female in NAD Lines, tubes and drains: peripheral HEENT: normocephalic, atraumatic, anicteric, Neck: small dressing C/D/I, Respiratory/Chest: lungs clear, no respiratory distress Cardiovascular/Chest: normal peripheral pulses, normal rate Abdomen: soft , obese Skin Exam: warm/dry, no diaphoresis Neurologic: alert, responsive Musculoskeletal: normal muscle bulk, SCD on Microbiology Date/Time Source Procedure Growth Status 11/25/19 08:10 Nasal Nares MRSA Culture - Final NO METHICILLIN RESISTANT STAPH AUREUS... Complete Current Medications Medications (Trade) Dose Ordered Sig/Barbie Route PRN Reason Start Time Stop Time Status Last Admin Dose Admin Acetaminophen/ Butalbital/ Caffeine (Fioricet) 1 tab Q8H PRN ORAL headache 11/26/19 23:00 12/25/19 14:59 Al Hydroxide/Mg Hydroxide (Mylanta) 30 ml Q6H PRN ORAL gerd 11/26/19 22:00 12/26/19 21:59 Clonidine HCl (Catapres Tab) 0.1 mg Q8H PRN ORAL For High Blood Pressure 11/26/19 22:00 02/23/20 21:59 Docusate Sodium (Colace) 100 mg TWICE A DAY ORAL 11/27/19 09:00 12/27/19 08:59 11/27/19 09:35 Famotidine (Pepcid) 20 mg BID ORAL 11/27/19 09:00 02/25/20 08:59 11/27/19 09:35 Hydromorphone HCl (Dilaudid) 1 mg Q3H PRN SUBQ Severe Breakthru Pain (>7) 11/26/19 23:00 12/03/19 22:59 11/27/19 14:33 Hydroxyzine HCl (Atarax) 25 mg Q6H PRN ORAL Itching 11/26/19 22:00 12/25/19 21:59 11/27/19 15:04 Magnesium Hydroxide (Mom) 30 ml DAILYPRN PRN ORAL Constipation 11/26/19 21:45 12/26/19 21:44 Ondansetron HCl (Zofran) 4 mg Q4H PRN IVP Nausea & Vomiting 11/26/19 22:00 12/25/19 21:59 Oxycodone HCl (Roxicodone) 5 mg Q3H PRN ORAL Mild Pain (Pain Scale 1-3) 11/26/19 22:00 12/03/19 21:59 11/27/19 12:31 Phenol/Menthol (Chloraseptic) 1 spray Q2H PRN ORAL sore throat 11/27/19 08:00 02/25/20 07:59 Temazepam (Restoril) 15 mg HSPRN PRN ORAL Insomnia 11/26/19 22:00 12/02/19 21:59 Assessment/Plan Assessment/Plan ASSESSMENT Intubated ( for surgery) Status post prior C4-C5 anterior cervical diskectomy and fusion. Advanced discopathy C5-C6, C6-C7 with left-sided vertebral artery breach. s/p revision of C4-C5 ACDF with hardware removal and C5-6-7 fusion Vertebral artery breach s/p blood transfusion Leukocytosis -trending down Mild pulmonary edema -resolved Atelectasis PLAN OF CARE [facility] floor POD #2, s/p extensive cervical spine surgery extubated 11/25 O2 titrate to keep sat >90% doubt PNA, likely initial mild pulm edema, given fluids and 2 U PRBC. no resp distress s/p Lasix x1 per cardio s/p IVF repeated CXR this am 11/26 -> clear lungs leukocytosis trending down s/p broad spectrum abx IS at the bedside encourage to use SCD on pain management monitor volumes remains hemodynamically stable, PT eval and Rx voided without difficulties ( after Yepez dc drain dc dressing C/ D/I diet as tolerated bowel regimen monitor HH, CBC in am dc plan as per sugoliveron supportive care case discussed and evaluated by supervising physician thank you for a consult! Duke Cody MD 11/28/19 1415: Subjective Allergies: Coded Allergies: MORPHINE (Verified Allergy, Severe, Hallucinations, 11/25/19) CODEINE (Verified Allergy, Intermediate, Shortness of Breath nausea, ) DIPHENHYDRAMINE (Verified Allergy, Intermediate, Rash , 11/25/19) Assessment/Plan Assessment/Plan Patient seen and examined with CAUSTICISER. Agree with above A&P as it reflects our joint deliberations. Mindi Wen NP Nov 27, 2019 15:49 Duke Cody MD Nov 28, 2019 14:15
[2019-11-27 16:00] VITALS: BP 133/80
--- NOTE | 2019-11-27 17:34 | NUR ---
NURSE NOTES: PATIENT SEEN BY PHYSICAL THERAPY TODAY. UP WITH WALKER AND TO CHAIR. TOLERATED FAIR.PAIN CONTROLLED WITH DILAUDID SUBCUTE AND ROXICODONE PO ALTERNATING. VSS. AFEBRILE. ABLE TO SWALLOW MORE EFFECTIVELY.PATIENT REMINDED TO USE INCENTIVE SPIROMETRY 10X/HR. NO RESPIRATORY DISTRESS NOTED. ANTERIOR SURGICAL SITE REMAINS C/D/I. BED IN LOW AND LOCKED POSITION; CALL LIGHT WITHIN REACH; BED ALARM ON.
--- NOTE | 2019-11-27 19:10 | NUR ---
NURSE NOTES: Received a pt awake,A&Ox4, and verbal. No sob,cough,fever, and pain at the moment. No iv, doctor aware. Surgical dressing is dry and intact. Bed is in the lowest position,locked, and call light within reach. We will keep monitoring the pt.
--- NOTE | 2019-11-27 19:12 | NUR ---
NURSE HAND-OFF: Important Events on Shift:N/A Patient Status: STABLE Diet: SOFT Pending Orders: NONE Pending Results/Labs:NONE Pending MD notification:NONE Latest Vital Signs: Temperature 98.4 , Pulse 66 , B/P 133 /80 , Respiratory Rate 20 , O2 SAT 97 , Room Air, O2 Flow Rate . Vital Sign Comment: [] Latest Kee Fall Score: 50 Fall Risk: High Risk Safety Measures: Call light Within Reach, Bed Alarm Zone 1, Side Rails Side Rails x3, Bed position Low and Locked. Fall Precautions: Yellow Socks Yellow Gown Door Sign Patient Fall Education Report given to MARIA EUGENIA GODINEZ.
--- NOTE | 2019-11-27 19:38 | Cardiology Progress Note ---
Assessment/Plan Assessment/Plan 1. Status post C4-C5 ACD with discopathy of C5, C6, C7. 2. Left vertebral artery breach during surgery. 3. Multiple drug allergies. 4. s/p transfusion 5. fluid oefr load now on med surg floor got upa n sat in semaj min dizzy looks comfortable drains out on diet PT doign better home soon sat of fine dvt ppc pneumoatic stocking Subjective Cardiovascular: Denies: chest pain, lightheadedness, palpitations Respiratory: Denies: shortness of breath Gastrointestinal/Abdominal: Reports: nausea, vomiting Genitourinary: Denies: burning Subjective neck pain Objective Last 24 Hour Vital Signs Date Time Temp Pulse Resp B/P (MAP) Pulse Ox O2 Delivery O2 Flow Rate FiO2 11/27/19 16:00 98.4 66 20 133/80 (97) 97 11/27/19 15:03 97.8 11/27/19 12:00 97.8 72 18 116/66 (83) 97 11/27/19 09:00 Room Air 11/27/19 08:00 99.1 77 20 135/74 (94) 97 11/27/19 04:16 98.6 78 18 129/71 (90) 95 11/26/19 23:59 98.7 80 20 121/64 (83) 97 11/26/19 20:13 3.0 11/26/19 20:00 3.0 11/26/19 20:00 Nasal Cannula 3.0 11/26/19 20:00 98.9 81 20 131/69 (89) 100 11/26/19 20:00 77 General Appearance: no apparent distress, alert Neck: supple Cardiovascular: normal rate Respiratory/Chest: lungs clear Abdomen: normal bowel sounds, non tender, soft Extremities: no swelling Intake and Output 11/26/19 11/27/19 19:00 07:00 Intake Total 1156.6666 ml 1600 ml Output Total 1425 ml Balance -268.3334 ml 1600 ml Intake Oral 600 ml IV Total 1156.6666 ml 1000 ml Output Urine Total 1415 ml Drainage Total 10 ml # Voids 5 Microbiology Date/Time Source Procedure Growth Status 11/25/19 08:10 Nasal Nares MRSA Culture - Final NO METHICILLIN RESISTANT STAPH AUREUS... Complete Ronen Chaney MD Nov 27, 2019 19:38
[2019-11-27 20:00] VITALS: BP 116/65
[2019-11-28] VITALS: BP 122/72
[2019-11-28] MEDS: oxyCODONE 5mg IR tab ORAL PRN ×4 (02:08→20:55)
[2019-11-28] MEDS: HydrOXYzine tab 25mg tab ORAL PRN ×3 (02:08→18:57)
[2019-11-28 04:00] VITALS: BP 117/66
[2019-11-28 06:19] LABS: EOSINOPHILS % (AUTO) 2.4 % (0.0-3.0); LYMPHOCYTES % (AUTO) 32.4 % (20.0-45.0); MEAN CORPUSCULAR VOLUME 89 FL (80-99); MONOCYTES % (AUTO) 10.8 % (1.0-10.0); NEUTROPHILS % (AUTO) 53.4 % (45.0-75.0); PLATELET COUNT 176 K/UL (150-450); RED BLOOD COUNT 3.69 M/UL (4.20-5.40); RED CELL DISTRIBUTION WIDTH 12.7 % (11.6-14.8); WHITE BLOOD COUNT 8.2 K/UL (4.8-10.8)
[2019-11-28] MEDS: HYDROmorphone 1mg/ml Carpuject SUBQ PRN ×5 (07:01→22:24)
--- NOTE | 2019-11-28 07:27 | NUR ---
NURSE NOTES: Handoff received from Shakeel GODINEZ. Patient is awake and alert, no signs of distress noted. No complaints of pain at this time. Breathing is even and unlabored on room air, no IV access (MD is aware). Surgical site is clean, dry, and intact. Bed is low and locked, side rails up x2, call light is within reach.
--- NOTE | 2019-11-28 07:40 | NUR ---
NURSE HAND-OFF: Important Events on Shift:n/a Patient Status: stable Diet: Regular Pending Orders: na Pending Results/Labs:na Pending MD notification:na Latest Vital Signs: Temperature 98.5 , Pulse 68 , B/P 117 /66 , Respiratory Rate 18 , O2 SAT 98 , Room Air, O2 Flow Rate . Vital Sign Comment: stable Latest Kee Fall Score: 35 Fall Risk: Medium Risk Safety Measures: Call light Within Reach, Bed Alarm Zone 1, Side Rails Side Rails x3, Bed position Low and Locked. Fall Precautions: Yellow Socks Yellow Gown Door Sign Patient Fall Education Report given to HERBERT Herrera.
[2019-11-28 08:00] VITALS: BP 101/59
--- NOTE | 2019-11-28 08:47 | Orthopedic Spine Progress Note ---
Ortho Spine - Progress Note Subjective Symptoms: c/o post-op neck pain, improved - as compared to pre-op Objective Vital Signs: Last 24 Hour Vital Signs Date Time Temp Pulse Resp B/P (MAP) Pulse Ox O2 Delivery O2 Flow Rate FiO2 11/28/19 04:00 98.5 68 18 117/66 (83) 98 11/28/19 00:00 98.1 72 19 122/72 (89) 97 11/27/19 21:00 Room Air 11/27/19 20:00 99.1 68 18 116/65 (82) 98 11/27/19 16:00 98.4 66 20 133/80 (97) 97 11/27/19 15:03 97.8 11/27/19 12:00 97.8 72 18 116/66 (83) 97 11/27/19 09:00 Room Air I&O: Intake and Output 11/27/19 11/28/19 19:00 07:00 Intake Total 300 ml 350 ml Balance 300 ml 350 ml Intake Oral 300 ml 350 ml # Voids 1 1 Wound: clean, intact Drains: none Neuro Status: stable Assessment Procedure Performed: ACDF partial corpectomies C5-7, HWR c45 Plan Plan: PT, pain management, discharge plan Agapito Xiao MD Nov 28, 2019 08:47
--- NOTE | 2019-11-28 08:59 | NUR ---
NURSE NOTES: Seen and evaluated by . Per : Patient can go home with home health. Order noted and carried out.
[2019-11-28] MEDS: Docusate 100mg cap ORAL SCH ×2 (09:24→18:58)
--- NOTE | 2019-11-28 10:25 | NUR ---
Discharge planning Patient is discharged with plans to d/c home w/ ARAVIND LEI to communicate d/c john regan Ele Carmine t: [phone] Addendum: 11/28/19 at 1032 by KO GARCÍA LVN QUIQUE instructed to vidal wong to f:[phone]
--- NOTE | 2019-11-28 11:01 | Pulmonology Progress Note ---
Mindi Wen ADMINISTRATIVE PERSONAL ASSISTANT 11/28/19 1101: Subjective Allergies: Coded Allergies: MORPHINE (Verified Allergy, Severe, Hallucinations, 11/25/19) CODEINE (Verified Allergy, Intermediate, Shortness of Breath nausea, ) DIPHENHYDRAMINE (Verified Allergy, Intermediate, Rash , 11/25/19) Subjective POD #3 extubated 11/25 on [facility] floor Yepez dc 11/25 , voiding w/out difficulties drain dc by surgeon no resp distress, now on RA, pulse ox stable pain controlled denies CP, SOB Objective Last 24 Hour Vital Signs Date Time Temp Pulse Resp B/P (MAP) Pulse Ox O2 Delivery O2 Flow Rate FiO2 11/28/19 08:00 98.4 83 18 101/59 (73) 95 11/28/19 04:00 98.5 68 18 117/66 (83) 98 11/28/19 00:00 98.1 72 19 122/72 (89) 97 11/27/19 21:00 Room Air 11/27/19 20:00 99.1 68 18 116/65 (82) 98 11/27/19 16:00 98.4 66 20 133/80 (97) 97 11/27/19 15:03 97.8 11/27/19 12:00 97.8 72 18 116/66 (83) 97 Intake and Output 11/27/19 11/28/19 19:00 07:00 Intake Total 300 ml 350 ml Balance 300 ml 350 ml Intake Oral 300 ml 350 ml # Voids 1 1 Objective General Appearance: awake, alert, obese female in NAD Lines, tubes and drains: peripheral HEENT: normocephalic, atraumatic, anicteric, Neck: small dressing C/D/I, Respiratory/Chest: lungs clear, no respiratory distress Cardiovascular/Chest: normal peripheral pulses, normal rate Abdomen: soft , obese Skin Exam: warm/dry, no diaphoresis Neurologic: alert, responsive Musculoskeletal: normal muscle bulk, SCD on Laboratory Tests 11/28/19 05:15: White Blood Count 8.2, Red Blood Count 3.69L, Hemoglobin 11.0L, Hematocrit 33.0L , Mean Corpuscular Volume 89, Mean Corpuscular Hemoglobin 29.8, Mean Corpuscular Hemoglobin Concent 33.3, Red Cell Distribution Width 12.7, Platelet Count 176, Mean Platelet Volume 6.4L, Neutrophils (%) (Auto) 53.4, Lymphocytes ( %) (Auto) 32.4, Monocytes (%) (Auto) 10.8H, Eosinophils (%) (Auto) 2.4, Basophils (%) (Auto) 1.0 Current Medications Medications (Trade) Dose Ordered Sig/Barbie Route PRN Reason Start Time Stop Time Status Last Admin Dose Admin Acetaminophen/ Butalbital/ Caffeine (Fioricet) 1 tab Q8H PRN ORAL headache 11/26/19 23:00 12/25/19 14:59 Al Hydroxide/Mg Hydroxide (Mylanta) 30 ml Q6H PRN ORAL gerd 11/26/19 22:00 12/26/19 21:59 Clonidine HCl (Catapres Tab) 0.1 mg Q8H PRN ORAL For High Blood Pressure 11/26/19 22:00 02/23/20 21:59 Docusate Sodium (Colace) 100 mg TWICE A DAY ORAL 11/27/19 09:00 12/27/19 08:59 11/28/19 09:24 Famotidine (Pepcid) 20 mg BID ORAL 11/27/19 09:00 02/25/20 08:59 11/28/19 09:24 Hydromorphone HCl (Dilaudid) 1 mg Q3H PRN SUBQ Severe Breakthru Pain (>7) 11/26/19 23:00 12/03/19 22:59 11/28/19 07:01 Hydroxyzine HCl (Atarax) 25 mg Q6H PRN ORAL Itching 11/26/19 22:00 12/25/19 21:59 11/28/19 02:08 Magnesium Hydroxide (Mom) 30 ml DAILYPRN PRN ORAL Constipation 11/26/19 21:45 12/26/19 21:44 Ondansetron HCl (Zofran) 4 mg Q4H PRN IVP Nausea & Vomiting 11/26/19 22:00 12/25/19 21:59 Oxycodone HCl (Roxicodone) 5 mg Q3H PRN ORAL Mild Pain (Pain Scale 1-3) 11/26/19 22:00 12/03/19 21:59 11/28/19 05:22 Phenol/Menthol (Chloraseptic) 1 spray Q2H PRN ORAL sore throat 11/27/19 08:00 02/25/20 07:59 Temazepam (Restoril) 15 mg HSPRN PRN ORAL Insomnia 11/26/19 22:00 12/02/19 21:59 Assessment/Plan Assessment/Plan ASSESSMENT Intubated ( for surgery) Status post prior C4-C5 anterior cervical diskectomy and fusion. Advanced discopathy C5-C6, C6-C7 with left-sided vertebral artery breach. s/p revision of C4-C5 ACDF with hardware removal and C5-6-7 fusion Vertebral artery breach s/p blood transfusion Leukocytosis -trending down Mild pulmonary edema -resolved Atelectasis PLAN OF CARE [facility] floor POD #3, s/p extensive cervical spine surgery extubated 11/25 O2 titrate to keep sat >90% doubt PNA, likely initial mild postop pulm edema, was given fluids and 2 U PRBC. no resp distress s/p Lasix x1 per cardio s/p IVF repeated CXR 11/26 -> clear lungs leukocytosis resolved s/p broad spectrum abx IS at the bedside encourage to use SCD on pain management monitor volumes remains hemodynamically stable, PT eval and Rx voided without difficulties ( after Yepez dc drain was dc small neck dressing C/ D/I , ice on PRN diet as tolerated-tolerates bowel regimen monitor HH, Hgb stable dc plan as per surgeon , likely today supportive care case discussed and evaluated by supervising physician thank you for a consult! Duke Cody MD 11/28/19 1415: Subjective Allergies: Coded Allergies: MORPHINE (Verified Allergy, Severe, Hallucinations, 11/25/19) CODEINE (Verified Allergy, Intermediate, Shortness of Breath nausea, ) DIPHENHYDRAMINE (Verified Allergy, Intermediate, Rash , 11/25/19) Assessment/Plan Assessment/Plan Patient seen and examined with ADMINISTRATIVE PERSONAL ASSISTANT. Agree with above A&P as it reflects our joint deliberations. Mindi Wen NP Nov 28, 2019 11:01 Duke Cody MD Nov 28, 2019 14:15
[2019-11-28 12:00] VITALS: BP 129/72
--- NOTE | 2019-11-28 14:42 | NUR ---
CLAIM MANAGER NOTES SPOKE WITH VINCE EVANS WITH [facility]. UNABLE TO PROVIDE HH IN [place] DUE TO LIMITED RESOURCES. [facility] PROVIDED TWO REHAB CENTERS HOWEVER NO BED IS AVAILABLE UNTIL SUNDAY OR SUNDAY. PT IS IN AGREEMENT WITH PLACEMENT AT THIS TIME. DCP ONGOING. INQUIRY FAXED TO THE FOLLOWING FACILITIES. [facility]IN[facility] RAMIRES [phone] [phone] [facility] [phone] (P) [phone] (F) [phone] ([facility]) [phone] (F)
--- NOTE | 2019-11-28 15:40 | NUR ---
Discharge planning: [facility] [phone] (P) [phone] (F) Spoke Segun; admissions not in at this time; Tracy to check if fax received; Tracy to call back if fax received [facility] [phone] (P) [phone] (F) Spoke pat Claudio; clinical received; No beds until ; but still check back on Sunday for financial clearance
[2019-11-28 16:00] VITALS: BP 134/67
--- NOTE | 2019-11-28 18:55 | Cardiology Progress Note ---
Assessment/Plan Assessment/Plan 1. Status post C4-C5 ACD with discopathy of C5, C6, C7. 2. Left vertebral artery breach during surgery. 3. Multiple drug allergies. 4. s/p transfusion 5. fluid oefr load now on med surg floor walked looks comfortable on diet PT doign better rehab soon dvt ppx pneumatic stocking Subjective Cardiovascular: Denies: chest pain, lightheadedness, palpitations Respiratory: Denies: shortness of breath Gastrointestinal/Abdominal: Denies: abdominal pain Genitourinary: Denies: burning Subjective neck pain is better , walked sat up Objective Last 24 Hour Vital Signs Date Time Temp Pulse Resp B/P (MAP) Pulse Ox O2 Delivery O2 Flow Rate FiO2 11/28/19 15:16 98.9 11/28/19 12:00 98.9 73 20 129/72 (91) 96 11/28/19 09:00 Room Air 11/28/19 08:00 98.4 83 18 101/59 (73) 95 11/28/19 04:00 98.5 68 18 117/66 (83) 98 11/28/19 00:00 98.1 72 19 122/72 (89) 97 11/27/19 21:00 Room Air 11/27/19 20:00 99.1 68 18 116/65 (82) 98 General Appearance: no apparent distress, alert, obese Neck: supple, other - dressing clear Cardiovascular: normal rate, regular rhythm Respiratory/Chest: lungs clear Abdomen: normal bowel sounds, non tender, soft Extremities: no swelling Intake and Output 11/27/19 11/28/19 18:59 06:59 Intake Total 400 ml 350 ml Balance 400 ml 350 ml Intake Oral 300 ml 350 ml IV Total 100 ml # Voids 1 1 Laboratory Tests Test 11/28/19 05:15 White Blood Count 8.2 K/UL (4.8-10.8) Red Blood Count 3.69 M/UL (4.20-5.40) L Hemoglobin 11.0 G/DL (12.0-16.0) L Hematocrit 33.0 % (37.0-47.0) L Mean Corpuscular Volume 89 FL (80-99) Mean Corpuscular Hemoglobin 29.8 PG (27.0-31.0) Mean Corpuscular Hemoglobin Concent 33.3 G/DL (32.0-36.0) Red Cell Distribution Width 12.7 % (11.6-14.8) Platelet Count 176 K/UL (150-450) Mean Platelet Volume 6.4 FL (6.5-10.1) L Neutrophils (%) (Auto) 53.4 % (45.0-75.0) Lymphocytes (%) (Auto) 32.4 % (20.0-45.0) Monocytes (%) (Auto) 10.8 % (1.0-10.0) H Eosinophils (%) (Auto) 2.4 % (0.0-3.0) Basophils (%) (Auto) 1.0 % (0.0-2.0) Ronen Chaney MD Nov 28, 2019 18:55
--- NOTE | 2019-11-28 19:25 | NUR ---
NURSE HAND-OFF: Important Events on Shift:[n/a] Patient Status: stable Diet: regular soft Pending Orders: Pending Results/Labs: Pending MD notification: Latest Vital Signs: Temperature 98.9 , Pulse 74 , B/P 134 /67 , Respiratory Rate 18 , O2 SAT 95 , Room Air, O2 Flow Rate . Vital Sign Comment: Latest Kee Fall Score: 35 Fall Risk: Medium Risk Safety Measures: Call light Within Reach, Bed Alarm Zone 1, Side Rails Side Rails x3, Bed position Low and Locked. Fall Precautions: Yellow Socks Yellow Gown Door Sign Patient Fall Education Report given to Kain GODINEZ.
--- NOTE | 2019-11-28 19:30 | NUR ---
NURSE NOTES: Received from Eddie GODINEZ. Patient is A/Ox4, no signs of distress noted. Report pain of 4/10 at this time. Breathing is even and unlabored on room air. No IV access per report MD is aware. Surgical site is C/D/I. Bed is low and locked, side rails up x2, call light is within reach. Will continue to monitor
[2019-11-28 20:00] VITALS: BP 126/73
[2019-11-29] VITALS: BP 128/70
[2019-11-29] MEDS: oxyCODONE 5mg IR tab ORAL PRN ×7 (00:49→22:38)
[2019-11-29] MEDS: HydrOXYzine tab 25mg tab ORAL PRN ×4 (00:50→19:50)
[2019-11-29] MEDS: HYDROmorphone 1mg/ml Carpuject SUBQ PRN ×7 (03:37→23:58)
[2019-11-29 04:00] VITALS: BP 129/72
--- NOTE | 2019-11-29 07:23 | NUR ---
NURSE HAND-OFF: Important Events on Shift: Pain management Patient Status: [stable] Diet: [soft diet ] Pending Orders: [] Pending Results/Labs:[] Pending MD notification:[] Latest Vital Signs: Temperature 98.1 , Pulse 77 , B/P 129 /72 , Respiratory Rate 19 , O2 SAT 95 , Room Air, O2 Flow Rate . Vital Sign Comment: [] Latest Kee Fall Score: 35 Fall Risk: Medium Risk Safety Measures: Call light Within Reach, Bed Alarm Zone 1, Side Rails Side Rails x3, Bed position Low and Locked. Fall Precautions: Yellow Socks Yellow Gown Door Sign Patient Fall Education Report given to HERBERT Veras
--- NOTE | 2019-11-29 07:25 | NUR ---
NURSE NOTES: Received patient in bed,awake, alert and oriented x4. Patient complains of pain on her right neck where the surgical wound, dressing is intact,clean. No visible blood or oozing. No neurologic deficit. Patient is able to walk to the bathroom without assistance. Patient refused IV insertion. Explained the risks and benefits. Bed is in lowest position and locked. Call light and personnel items within reach. Will continue plan of care.
[2019-11-29] MEDS: Docusate 100mg cap ORAL SCH ×2 (07:51→17:41)
[2019-11-29 08:00] VITALS: BP 121/61
--- NOTE | 2019-11-29 08:20 | NUR ---
NURSE NOTES: Administered dilaudid 1mg SQ earlier and offered MOM due to patient did not move her bowel since 11/25/19 but patient refused stating " I am taking docusate, I don't think I need it now." RN re educated on medication and reminded patient to call nurse if she needs meds. Abdomen is soft to touch with bowel sounds.
[2019-11-29] MEDS: Milk of Magnesia 30ml Ud ORAL PRN (10:28)
--- NOTE | 2019-11-29 10:28 | NUR ---
NURSE NOTES: Administered MOM for constipation. Will continue to monitor.
--- NOTE | 2019-11-29 10:31 | Pulmonology Progress Note ---
Teddy Wenet [employer] 11/29/19 1031: Subjective Allergies: Coded Allergies: MORPHINE (Verified Allergy, Severe, Hallucinations, 11/25/19) CODEINE (Verified Allergy, Intermediate, Shortness of Breath nausea, ) DIPHENHYDRAMINE (Verified Allergy, Intermediate, Rash , 11/25/19) HYDROMORPHONE (Verified Adverse Reaction, Severe, Shortness of Breath, ) Breakout Itching to Chest, upper extermities and abdomen Subjective POD #4 reports incisional pain along with right shoulder radiating to the forearm pain this pain chronic, but worse this am extubated 11/25 on [facility] floor Yepez dc 11/25 , voiding w/out difficulties drain dc by surgeon no resp distress, now on RA, pulse ox stable denies CP, SOB Objective Last 24 Hour Vital Signs Date Time Temp Pulse Resp B/P (MAP) Pulse Ox O2 Delivery O2 Flow Rate FiO2 11/29/19 09:00 Room Air 11/29/19 08:00 97.1 76 19 121/61 (81) 95 11/29/19 04:00 98.1 77 19 129/72 (91) 95 11/29/19 00:00 97.8 75 18 128/70 (89) 97 11/28/19 21:00 Room Air 11/28/19 20:00 98.5 77 18 126/73 (90) 95 11/28/19 19:28 98.9 11/28/19 16:00 97.9 74 18 134/67 (89) 95 11/28/19 12:00 98.9 73 20 129/72 (91) 96 Intake and Output 11/28/19 11/29/19 19:00 07:00 Intake Total 1800 ml 380 ml Balance 1800 ml 380 ml Intake Oral 1800 ml 380 ml # Voids 3 2 Objective General Appearance: awake, alert, obese female in NAD Lines, tubes and drains: peripheral HEENT: normocephalic, atraumatic, anicteric, Neck: small dressing C/D/I, Respiratory/Chest: lungs clear, no respiratory distress Cardiovascular/Chest: normal peripheral pulses, normal rate Abdomen: soft , obese Skin Exam: warm/dry, no diaphoresis Neurologic: alert, responsive Musculoskeletal: normal muscle bulk, SCD on Current Medications Medications (Trade) Dose Ordered Sig/Barbie Route PRN Reason Start Time Stop Time Status Last Admin Dose Admin Acetaminophen/ Butalbital/ Caffeine (Fioricet) 1 tab Q8H PRN ORAL headache 11/26/19 23:00 12/25/19 14:59 Al Hydroxide/Mg Hydroxide (Mylanta) 30 ml Q6H PRN ORAL gerd 11/26/19 22:00 12/26/19 21:59 Clonidine HCl (Catapres Tab) 0.1 mg Q8H PRN ORAL For High Blood Pressure 11/26/19 22:00 02/23/20 21:59 Docusate Sodium (Colace) 100 mg TWICE A DAY ORAL 11/27/19 09:00 12/27/19 08:59 11/29/19 07:51 Famotidine (Pepcid) 20 mg BID ORAL 11/27/19 09:00 02/25/20 08:59 11/29/19 07:51 Hydromorphone HCl (Dilaudid) 1 mg Q3H PRN SUBQ Severe Breakthru Pain (>7) 11/26/19 23:00 12/03/19 22:59 11/29/19 07:38 Hydroxyzine HCl (Atarax) 25 mg Q6H PRN ORAL Itching 11/26/19 22:00 12/25/19 21:59 11/29/19 06:22 Magnesium Hydroxide (Mom) 30 ml DAILYPRN PRN ORAL Constipation 11/26/19 21:45 12/26/19 21:44 Ondansetron HCl (Zofran) 4 mg Q4H PRN IVP Nausea & Vomiting 11/26/19 22:00 12/25/19 21:59 Oxycodone HCl (Roxicodone) 5 mg Q3H PRN ORAL Mild Pain (Pain Scale 1-3) 11/26/19 22:00 12/03/19 21:59 11/29/19 06:22 Phenol/Menthol (Chloraseptic) 1 spray Q2H PRN ORAL sore throat 11/27/19 08:00 02/25/20 07:59 Temazepam (Restoril) 15 mg HSPRN PRN ORAL Insomnia 11/26/19 22:00 12/02/19 21:59 Assessment/Plan Assessment/Plan ASSESSMENT Intubated ( for surgery) , s/p extubation Status post prior C4-C5 anterior cervical diskectomy and fusion. Advanced discopathy C5-C6, C6-C7 with left-sided vertebral artery breach. s/p revision of C4-C5 ACDF with hardware removal and C5-6-7 fusion Vertebral artery breach s/p blood transfusion Leukocytosis -trending down Mild pulmonary edema -resolved Atelectasis PLAN OF CARE [facility] floor POD #4, s/p extensive cervical spine surgery extubated 11/25 O2 titrate to keep sat >90% doubt PNA, likely initial mild postop pulm edema, was given fluids and 2 U PRBC. no resp distress s/p Lasix x1 per cardio s/p IVF repeated CXR 11/26 -> clear lungs leukocytosis resolved s/p broad spectrum abx IS at the bedside encourage to use SCD on pain management , pain worse today - per surgeon- may need pain specialist monitor volumes remains hemodynamically stable, PT eval and Rx voided without difficulties ( after Yepez dc drain was dc small neck dressing C/ D/I , ice on PRN diet as tolerated-tolerates bowel regimen monitor HH, Hgb stable dc plan as per surgeon , supportive care case discussed and evaluated by supervising physician thank you for a consult! Gian Mccabe MD 11/30/192034: Subjective Allergies: Coded Allergies: MORPHINE (Verified Allergy, Severe, Hallucinations, 11/25/19) CODEINE (Verified Allergy, Intermediate, Shortness of Breath nausea, ) DIPHENHYDRAMINE (Verified Allergy, Intermediate, Rash , 11/25/19) HYDROMORPHONE (Verified Adverse Reaction, Severe, Shortness of Breath, ) Breakout Itching to Chest, upper extermities and abdomen Assessment/Plan Assessment/Plan Patient seen and examined with [employer]. Agree with above A&P as it reflects our joint deliberations. Mindi Wen NP Nov 29, 2019 10:31 Gian Mccabe MD Nov 30, 2019 20:35
[2019-11-29 12:00] VITALS: BP 130/64
--- NOTE | 2019-11-29 13:30 | NUR ---
NURSE NOTES: patient verbalized that her pain is steady,not spiking up. will continue to monitor.
--- NOTE | 2019-11-29 15:55 | NUR ---
CASE MANAGEMENT:REVIEW SI;POD #4 CERVICAL RADICULOPATHY S/P C4-C5 ACD WITH DISCOPATHY OF C5, C6, C7 11/24 98.1 77 19 130/64 95% ON RA LABS-NONE TODAY IS;PEPCID PO BID DILAUDID SUBQ Q3 PRN ATARAX PO Q6 PRN OXYCODONE PO Q3 PRN MED SURG STATUS DCP;FROM HOME PLAN; REHAB PENDING FINANCIAL CLEARANCE
[2019-11-29 16:00] VITALS: BP 129/71
--- NOTE | 2019-11-29 16:03 | NUR ---
INSURANCE ALL REVIEWS/CLINICALS HAVE BEEN FAXED TO NANNETTE Santos @ [facility]#[phone] FAX#[phone]
--- NOTE | 2019-11-29 16:41 | NUR ---
PT Note Attempted to see patient x 2 but patient refused due to c/o spasms and pain on first attempt. Second attempt, patient states that she just got back in bed and is now comfortable. Per patient, she was ambulating in her room with the FWW, which was verified by RN.
--- NOTE | 2019-11-29 16:46 | Cardiology Progress Note ---
Assessment/Plan Problem List: (1) Cervical disc disease Status: stable, progressing Status Narrative Pt w/ OA, s/p cervical diskectomy with surgery complicated by vertebral artery dissection. Pt is post op d 4 and is hemodynamically stable. Assessment/Plan continue analgesics per surgery. Continue incentive spirometry Physical therapy. dc plan per primary team Subjective ROS Limited/Unobtainable: No Subjective Cardiology for Dr. Chaney Pt c/o neck pain. no chest pain or dyspnea Objective Last 24 Hour Vital Signs Date Time Temp Pulse Resp B/P (MAP) Pulse Ox O2 Delivery O2 Flow Rate FiO2 11/29/19 12:00 97.8 73 19 130/64 (86) 95 11/29/19 09:00 Room Air 11/29/19 08:00 97.1 76 19 121/61 (81) 95 11/29/19 04:00 98.1 77 19 129/72 (91) 95 11/29/19 00:00 97.8 75 18 128/70 (89) 97 11/28/19 21:00 Room Air 11/28/19 20:00 98.5 77 18 126/73 (90) 95 11/28/19 19:28 98.9 General Appearance: WD/WN, no apparent distress, alert EENT: PERRL/EOMI Neck: no JVD, other - dressing dry , intact Rhythm: NSR Cardiovascular: normal rate, regular rhythm, no gallop/murmur Respiratory/Chest: lungs clear Abdomen: non tender, soft Extremities: no swelling Intake and Output 11/28/19 11/29/19 19:00 07:00 Intake Total 1800 ml 380 ml Balance 1800 ml 380 ml Intake Oral 1800 ml 380 ml # Voids 3 2 Saskia Wellington MD Nov 29, 2019 16:46
--- NOTE | 2019-11-29 19:23 | NUR ---
NURSE HAND-OFF: Important Events on Shift:pain management Patient Status: stable Diet: soft,mech soft chopped Pending Orders: Pending Results/Labs: Pending MD notification: Latest Vital Signs: Temperature 97.8 , Pulse 77 , B/P 129 /71 , Respiratory Rate 19 , O2 SAT 98 , Room Air, O2 Flow Rate . Vital Sign Comment: Latest Kee Fall Score: 35 Fall Risk: Medium Risk Safety Measures: Call light Within Reach, Bed Alarm Zone 1, Side Rails Side Rails x3, Bed position Low and Locked. Fall Precautions: Yellow Socks Yellow Gown Door Sign Patient Fall Education Report given to steven and endorsed plan of care.
[2019-11-29 20:00] VITALS: BP 127/70
--- NOTE | 2019-11-29 20:44 | NUR ---
NURSE NOTES: Received report from HERBERT Lucio. Patient in stable condition. Verbalized preferences upon handoff.
[2019-11-30] VITALS (7 sets, daily range): BP systolic 113–138; BP diastolic 64–79
[2019-11-30] MEDS: oxyCODONE 5mg IR tab ORAL PRN ×6 (01:59→23:33)
[2019-11-30] MEDS: HydrOXYzine tab 25mg tab ORAL PRN (01:59)
--- NOTE | 2019-11-30 07:09 | NUR ---
NURSE NOTES: Report received from Tito GODINEZ, rounds made. Patient AOx4, irritable. Anterior/posterior neck and bilateral shoulders pain 8/10, will medicate as ordered. Patient reports that she does not want Dilaudid SQ anymore, due to feeling SOB and itching, which has subsided at this time. Respirations even/unlabored. No distress on RA. Abdomen soft, non-tender, bowel sounds present, no NV, no BM yet, will administer MOM as ordered. Encouraged PO fluid intake. No IV access. Neuros intact, skin warm, hand grasps/pedal pushes moderate 4/5, equal, no NT, pulses palpable. Call light in reach, bed in lowest position, will continue to monitor.
--- NOTE | 2019-11-30 07:38 | NUR ---
NURSE HAND-OFF: Important Events on Shift:[PAIN MANAGEMENT] Patient Status: [STABLE] Diet: [SOFT MECHANICAL] Pending Orders: [] Pending Results/Labs:[] Pending MD notification:[] Latest Vital Signs: Temperature 97.8 , Pulse 74 , B/P 120 /67 , Respiratory Rate 20 , O2 SAT 97 , Room Air, O2 Flow Rate . Vital Sign Comment: [] Latest Kee Fall Score: 35 Fall Risk: Medium Risk Safety Measures: Call light Within Reach, Bed Alarm Zone 1, Side Rails Side Rails x3, Bed position Low and Locked. Fall Precautions: Yellow Socks Yellow Gown Door Sign Patient Fall Education Report given to [PRISCILLA GODINEZ ].
[2019-11-30] MEDS: Docusate 100mg cap ORAL SCH ×2 (09:21→17:16)
--- NOTE | 2019-11-30 10:00 | NUR ---
NURSE NOTES: Discussed Dilaudid (SOB/itching) reaction with Mindi Wen PHYSICIAN OBSTETRICIAN and Dr. Miranda. Allergies updated with Dilaudid added. New orders received from Dr. Miranda to discontinue Dilaudid, add Oxycodone IR 10 mg PO Q3 hours PRN for Moderate Pain and Oxycodone IR 15 mg PO Q3 hours PRN for Severe Pain. Reviewed new orders with patient, patient requesting to take Oxycodone 15 mg at this time, confirmed with pharmacy that patient has to wait until she has reached the 3 hour point due to last dose (5mg at 0921, not due yet), verbalized understanding. Ice packs provided x2. Will continue to monitor,
--- NOTE | 2019-11-30 10:07 | Pulmonology Progress Note ---
Mindi Wen CERTIFIED MEDICAL DOSIMETRIST 11/30/19 1007: Subjective ROS Limited/Unobtainable: No Allergies: Coded Allergies: MORPHINE (Verified Allergy, Severe, Hallucinations, 11/25/19) CODEINE (Verified Allergy, Intermediate, Shortness of Breath nausea, ) DIPHENHYDRAMINE (Verified Allergy, Intermediate, Rash , 11/25/19) HYDROMORPHONE (Verified Adverse Reaction, Severe, Shortness of Breath, ) Breakout Itching to Chest, upper extermities and abdomen Subjective POD #5 no signs of resp distress pulse ox stable on RA remains afebrile and hemodynamically stable reports incisional pain along with right shoulder radiating to the forearm pain received Dilaudid SQ for breakthrough pain, reported itching, allergic to antihistamine Dilaudid stopped, pt allergic to Morphine and Tramadol as well itching stopped., Oxycodone po controls pain denies CP, SOB Objective Last 24 Hour Vital Signs Date Time Temp Pulse Resp B/P (MAP) Pulse Ox O2 Delivery O2 Flow Rate FiO2 11/30/19 08:00 98.3 82 20 138/79 (98) 95 11/30/19 04:00 97.8 74 20 120/67 (84) 97 11/30/19 00:28 98.1 11/30/19 00:00 98.1 75 20 125/64 (84) 97 11/29/19 21:00 Room Air 11/29/19 20:00 98.0 79 20 127/70 (89) 96 11/29/19 16:00 97.8 77 19 129/71 (90) 98 11/29/19 12:00 97.8 73 19 130/64 (86) 95 Intake and Output 11/29/19 11/30/19 19:00 07:00 Intake Total 400 ml 1600 ml Balance 400 ml 1600 ml Intake Oral 400 ml 1600 ml # Voids 3 2 Objective General Appearance: awake, alert, obese female in NAD Lines, tubes and drains: peripheral HEENT: normocephalic, atraumatic, anicteric, Neck: small dressing C/D/I, Respiratory/Chest: lungs clear, no respiratory distress Cardiovascular/Chest: normal peripheral pulses, normal rate Abdomen: soft , obese Skin Exam: warm/dry, no diaphoresis Neurologic: alert, responsive Musculoskeletal: normal muscle bulk, SCD on Current Medications Medications (Trade) Dose Ordered Sig/Barbie Route PRN Reason Start Time Stop Time Status Last Admin Dose Admin Acetaminophen/ Butalbital/ Caffeine (Fioricet) 1 tab Q8H PRN ORAL headache 11/26/19 23:00 12/25/19 14:59 Al Hydroxide/Mg Hydroxide (Mylanta) 30 ml Q6H PRN ORAL gerd 11/26/19 22:00 12/26/19 21:59 Clonidine HCl (Catapres Tab) 0.1 mg Q8H PRN ORAL For High Blood Pressure 11/26/19 22:00 02/23/20 21:59 Docusate Sodium (Colace) 100 mg TWICE A DAY ORAL 11/27/19 09:00 12/27/19 08:59 11/30/19 09:21 Famotidine (Pepcid) 20 mg BID ORAL 11/27/19 09:00 02/25/20 08:59 11/30/19 09:21 Hydroxyzine HCl (Atarax) 25 mg Q6H PRN ORAL Itching 11/26/19 22:00 12/25/19 21:59 11/30/19 01:59 Magnesium Hydroxide (Mom) 30 ml DAILYPRN PRN ORAL Constipation 11/26/19 21:45 12/26/19 21:44 11/29/19 10:28 Ondansetron HCl (Zofran) 4 mg Q4H PRN IVP Nausea & Vomiting 11/26/19 22:00 12/25/19 21:59 Oxycodone HCl (Roxicodone) 5 mg Q3H PRN ORAL Mild Pain (Pain Scale 1-3) 11/26/19 22:00 12/03/19 21:59 11/30/19 09:20 Oxycodone HCl (Roxicodone) 10 mg Q3HR PRN ORAL Moderate Pain (Pain Scale 4-6) 11/30/19 10:00 12/07/19 09:59 UNV Oxycodone HCl (Roxicodone) 15 mg Q3HR PRN ORAL Severe Pain (Pain Scale 7-10) 11/30/19 10:00 12/07/19 09:59 UNV Phenol/Menthol (Chloraseptic) 1 spray Q2H PRN ORAL sore throat 11/27/19 08:00 02/25/20 07:59 Temazepam (Restoril) 15 mg HSPRN PRN ORAL Insomnia 11/26/19 22:00 12/02/19 21:59 Assessment/Plan Assessment/Plan ASSESSMENT Intubated ( for surgery) , s/p extubation Status post prior C4-C5 anterior cervical diskectomy and fusion. Advanced discopathy C5-C6, C6-C7 with left-sided vertebral artery breach. s/p revision of C4-C5 ACDF with hardware removal and C5-6-7 fusion Vertebral artery breach s/p blood transfusion Leukocytosis -trending down Mild pulmonary edema -resolved Atelectasis PLAN OF CARE [facility] floor POD #5, s/p extensive cervical spine surgery extubated 11/25 Yepez dc 11/25 , voiding w/out difficulties drain dc by surgeon no resp distress, on RA, pulse ox stable O2 prn titrate to keep sat >90% doubt PNA, likely initial mild postop pulm edema, was given fluids and 2 U PRBC. no resp distress s/p Lasix x1 per cardio s/p IVF repeated CXR 11/26 -> clear lungs leukocytosis resolved s/p broad spectrum abx IS at the bedside encourage to use SCD on pain management , pain worse today - per surgeon- may need pain specialist monitor volumes remains hemodynamically stable, PT eval and Rx voided without difficulties ( after Yepez dc drain was dc small neck dressing C/ D/I , ice on PRN diet as tolerated-tolerates bowel regimen monitor HH, Hgb stable discussed with nursing, recommended to contact pain specialist , who already follows for further recommendations dc plan as per surgeon , supportive care case discussed and evaluated by supervising physician thank you for a consult! Gian Mccabe MD 11/30/192035: Subjective Allergies: Coded Allergies: MORPHINE (Verified Allergy, Severe, Hallucinations, 11/25/19) CODEINE (Verified Allergy, Intermediate, Shortness of Breath nausea, ) DIPHENHYDRAMINE (Verified Allergy, Intermediate, Rash , 11/25/19) HYDROMORPHONE (Verified Adverse Reaction, Severe, Shortness of Breath, ) Breakout Itching to Chest, upper extermities and abdomen Assessment/Plan Assessment/Plan Patient seen and examined with CERTIFIED MEDICAL DOSIMETRIST. Agree with above A&P as it reflects our joint deliberations. Mindi Wen NP Nov 30, 2019 10:07 Gian Mccabe MD Nov 30, 2019 20:36
[2019-11-30] MEDS: Milk of Magnesia 30ml Ud ORAL PRN (10:39)
--- NOTE | 2019-11-30 12:00 | NUR ---
NURSE NOTES: Patient up with assist to bathroom, performs proper body mechanics while getting in and out of bed. Ambulatory to bathroom and halls with FWW. Right neck dressing remains unchanged, CDI. Yanmarbellaur changed, already connected to suction, patient reports sometimes she has difficulty clearing throat, no cough noted. Up to chair. Will continue to monitor. Addendum: 11/30/19 at 1921 by Bess Atwood RN Encouraged IS and ankle rotation, verbalized understanding.
[2019-11-30] MEDS: oxyCODONE 15mg IR tab ORAL PRN (12:37)
--- NOTE | 2019-11-30 15:21 | Cardiology Progress Note ---
Assessment/Plan Problem List: (1) Cervical disc disease Status: stable, progressing Status Narrative Pt w/ OA, s/p cervical diskectomy with surgery complicated by vertebral artery dissection. Pt is post op d 4 and is hemodynamically stable. Assessment/Plan continue analgesics, ice to surg site. Continue incentive spirometry Physical therapy/ increase activity dc plan per primary team Subjective ROS Limited/Unobtainable: No Subjective Cardiology for Dr. Chaney Pt c/o pain at back of neck, relieved w/ analgesics Objective Last 24 Hour Vital Signs Date Time Temp Pulse Resp B/P (MAP) Pulse Ox O2 Delivery O2 Flow Rate FiO2 11/30/19 12:00 98.2 76 18 113/70 (84) 99 11/30/19 09:00 Room Air 11/30/19 08:00 98.3 82 20 138/79 (98) 95 11/30/19 04:00 97.8 74 20 120/67 (84) 97 11/30/19 00:28 98.1 11/30/19 00:00 98.1 75 20 125/64 (84) 97 11/29/19 21:00 Room Air 11/29/19 20:00 98.0 79 20 127/70 (89) 96 11/29/19 16:00 97.8 77 19 129/71 (90) 98 General Appearance: WD/WN, alert EENT: PERRL/EOMI Neck: supple, other - r neck surgical dressing dry, clean Rhythm: NSR Cardiovascular: normal rate, regular rhythm, no gallop/murmur Respiratory/Chest: lungs clear Abdomen: non tender, soft Extremities: no swelling Intake and Output 11/29/19 11/30/19 19:00 07:00 Intake Total 400 ml 1600 ml Balance 400 ml 1600 ml Intake Oral 400 ml 1600 ml # Voids 3 2 Saskia Wellington MD Nov 30, 2019 15:21
--- NOTE | 2019-11-30 16:21 | NUR ---
PT Note Attempted to see patient for treatment but patient refused. Patient reports that she has been ambulating in her room with the FWW.
--- NOTE | 2019-11-30 16:45 | NUR ---
NURSE NOTES: Patient reports anterior/posterior neck pain 6-7 at this time, reviewed pain medications with patient. Decided to take Oxycodone 10 mg due to she felt like the Oxycodone 15 mg made her too sleepy (but states, "I needed the sleep because I haven't been sleeping well.") Medicated with Oxycodone 10 mg per patient request, ice packs replaced. Will reassess pain and tolerance to pain medication.
--- NOTE | 2019-11-30 19:03 | NUR ---
NURSE HAND-OFF: Important Events on Shift:Dilaudid discontinued/added to allergies, New orders for Oxycodone 10mg and 15 mg Patient Status: stable Diet: soft Pending Orders: none Pending Results/Labs:none Pending MD notification:none Latest Vital Signs: Temperature 98.8 , Pulse 69 , B/P 124 /69 , Respiratory Rate 16 , O2 SAT 95 , Room Air, O2 Flow Rate . Vital Sign Comment: none Latest Kee Fall Score: 35 Fall Risk: Medium Risk Safety Measures: Call light Within Reach, Bed Alarm Zone 1, Side Rails Side Rails x3, Bed position Low and Locked. Fall Precautions: Yellow Socks Yellow Gown Door Sign Patient Fall Education Report given to Tito GODINEZ.
--- NOTE | 2019-11-30 19:21 | NUR ---
NURSE NOTES: Received report from HERBERT Kellogg. Patient seen sitting at bed. Stable.
[2019-12-01] VITALS: BP 119/68
[2019-12-01 04:00] VITALS: BP 128/71
[2019-12-01] MEDS: oxyCODONE 5mg IR tab ORAL PRN ×2 (04:16→21:34)
--- NOTE | 2019-12-01 07:13 | NUR ---
NURSE HAND-OFF: Important Events on Shift:[Pain Management ] Patient Status: [Stable ] Diet: [Mechanical Soft] Pending Orders: [pend dc plan] Pending Results/Labs:[] Pending MD notification:[] Latest Vital Signs: Temperature 98.1 , Pulse 65 , B/P 128 /71 , Respiratory Rate 18 , O2 SAT 97 , Room Air, O2 Flow Rate . Vital Sign Comment: [] Latest Kee Fall Score: 35 Fall Risk: Medium Risk Safety Measures: Call light Within Reach, Bed Alarm Zone 1, Side Rails Side Rails x3, Bed position Low and Locked. Fall Precautions: Yellow Socks Yellow Gown Door Sign Patient Fall Education Report given to [Rayne GODINEZ].
[2019-12-01 08:00] VITALS: BP 128/70
--- NOTE | 2019-12-01 08:00 | NUR ---
NURSE NOTES: Received report from Tito RN, pt seating in bed a/a/ox4 eating breakfast with no s/s of n/v. surgical dressing dry and intact. no IV access per report md is aware. call light within reach, bed in lowest position, side rales up x2. I will f/u as needed.
[2019-12-01] MEDS ORDERED: Lactulose 20gm/30ml UDC ORAL SCH (08:45)
--- NOTE | 2019-12-01 08:53 | Pulmonology Progress Note ---
Mindi Wen JIG MILL OPERATOR 12/01/19 0853: Subjective ROS Limited/Unobtainable: No Allergies: Coded Allergies: MORPHINE (Verified Allergy, Severe, Hallucinations, 11/25/19) CODEINE (Verified Allergy, Intermediate, Shortness of Breath nausea, ) DIPHENHYDRAMINE (Verified Allergy, Intermediate, Rash , 11/25/19) HYDROMORPHONE (Verified Adverse Reaction, Severe, Shortness of Breath, ) Breakout Itching to Chest, upper extermities and abdomen Subjective POD #6 no signs of resp distress pulse ox stable on RA denies CP, SOB remains afebrile and hemodynamically stable pain controlled wity Oxycodone per pain specialism recs no BM x 7 days Objective Last 24 Hour Vital Signs Date Time Temp Pulse Resp B/P (MAP) Pulse Ox O2 Delivery O2 Flow Rate FiO2 12/01/19 08:00 98.1 77 18 128/70 (89) 97 12/01/19 04:00 98.1 65 18 128/71 (90) 97 12/01/19 00:00 98.5 77 20 119/68 (85) 97 11/30/19 21:00 Room Air 11/30/19 20:00 97.9 72 20 117/69 (85) 96 11/30/19 16:00 98.8 69 16 124/69 (87) 95 11/30/19 12:00 98.2 76 18 113/70 (84) 99 11/30/19 09:00 Room Air Intake and Output 11/30/19 12/01/19 19:00 07:00 Intake Total 1120 ml 640 ml Balance 1120 ml 640 ml Intake Oral 1120 ml 640 ml # Voids 3 3 Objective General Appearance: awake, alert, obese female in NAD Lines, tubes and drains: peripheral HEENT: normocephalic, atraumatic, anicteric, Neck: small dressing C/D/I, Respiratory/Chest: lungs clear, no respiratory distress Cardiovascular/Chest: normal peripheral pulses, normal rate Abdomen: soft , obese, + BS Skin Exam: warm/dry, no diaphoresis Neurologic: alert, responsive Musculoskeletal: normal muscle bulk, SCD on Current Medications Medications (Trade) Dose Ordered Sig/Barbie Route PRN Reason Start Time Stop Time Status Last Admin Dose Admin Acetaminophen/ Butalbital/ Caffeine (Fioricet) 1 tab Q8H PRN ORAL headache 11/26/19 23:00 12/25/19 14:59 Al Hydroxide/Mg Hydroxide (Mylanta) 30 ml Q6H PRN ORAL gerd 11/26/19 22:00 12/26/19 21:59 Clonidine HCl (Catapres Tab) 0.1 mg Q8H PRN ORAL For High Blood Pressure 11/26/19 22:00 02/23/20 21:59 Docusate Sodium (Colace) 100 mg TWICE A DAY ORAL 11/27/19 09:00 12/27/19 08:59 11/30/19 17:16 Famotidine (Pepcid) 20 mg BID ORAL 11/27/19 09:00 02/25/20 08:59 11/30/19 17:16 Hydroxyzine HCl (Atarax) 25 mg Q6H PRN ORAL Itching 11/26/19 22:00 12/25/19 21:59 11/30/19 01:59 Lactulose (Cephulac) 30 gm ONCE ORAL 12/01/19 08:45 12/01/19 09:45 Magnesium Hydroxide (Mom) 30 ml DAILYPRN PRN ORAL Constipation 11/26/19 21:45 12/26/19 21:44 11/30/19 10:39 Ondansetron HCl (Zofran) 4 mg Q4H PRN IVP Nausea & Vomiting 11/26/19 22:00 12/25/19 21:59 Oxycodone HCl (Roxicodone) 5 mg Q3H PRN ORAL Mild Pain (Pain Scale 1-3) 11/26/19 22:00 12/03/19 21:59 11/30/19 09:20 Oxycodone HCl (Roxicodone) 10 mg Q3HR PRN ORAL Moderate Pain (Pain Scale 4-6) 11/30/19 10:00 12/07/19 09:59 12/01/19 04:16 Oxycodone HCl (Roxicodone) 15 mg Q3HR PRN ORAL Severe Pain (Pain Scale 7-10) 11/30/19 10:00 12/07/19 09:59 11/30/19 12:37 Phenol/Menthol (Chloraseptic) 1 spray Q2H PRN ORAL sore throat 11/27/19 08:00 02/25/20 07:59 Temazepam (Restoril) 15 mg HSPRN PRN ORAL Insomnia 11/26/19 22:00 12/02/19 21:59 Assessment/Plan Assessment/Plan ASSESSMENT Intubated ( for surgery) , s/p extubation Status post prior C4-C5 anterior cervical diskectomy and fusion. Advanced discopathy C5-C6, C6-C7 with left-sided vertebral artery breach. s/p revision of C4-C5 ACDF with hardware removal and C5-6-7 fusion Vertebral artery breach s/p blood transfusion Leukocytosis -trending down Mild pulmonary edema -resolved ( postop due to IV fluids and PRBC, s/p Lasix x 1-resolved shortly) Atelectasis PLAN OF CARE MS floor POD #6, s/p extensive cervical spine surgery extubated 11/25 Yepez dc 11/25 , voiding w/out difficulties drain dc by surgeon no resp distress, on RA, pulse ox stable O2 prn titrate to keep sat >90% doubt PNA, likely initial mild acute postop pulm edema, was given fluids and 2 U PRBC. no resp distress s/p Lasix x1 per cardio s/p IVF repeated CXR 11/26 -> clear lungs leukocytosis resolved s/p broad spectrum abx IS at the bedside encourage to use SCD on pain management , pain worse today - per surgeon- may need pain specialist monitor volumes remains hemodynamically stable, PT eval and Rx voided without difficulties ( after Yepez dc drain was dc small neck dressing C/ D/I , ice on PRN diet as tolerated-tolerates bowel regimen , still no BM x 7 days, give Lactulose x 1 monitor HH, Hgb stable discussed with nursing, recommended to contact pain specialist , who already follows for further recommendations dc plan short term SNF vs acute rehav vs home with HH services supportive care case discussed and evaluated by supervising physician thank you for a consult! Duke Cody MD 12/01/19 1422: Subjective Allergies: Coded Allergies: MORPHINE (Verified Allergy, Severe, Hallucinations, 11/25/19) CODEINE (Verified Allergy, Intermediate, Shortness of Breath nausea, ) DIPHENHYDRAMINE (Verified Allergy, Intermediate, Rash , 11/25/19) HYDROMORPHONE (Verified Adverse Reaction, Severe, Shortness of Breath, ) Breakout Itching to Chest, upper extermities and abdomen Assessment/Plan Assessment/Plan Patient seen and examined with JIG MILL OPERATOR. Agree with above A&P as it reflects our joint deliberations. Mindi Wen NP Dec 01, 2019 08:53 Duke Cody MD Dec 01, 2019 14:22
[2019-12-01] MEDS: Docusate 100mg cap ORAL SCH ×2 (08:55→17:21)
[2019-12-01] MEDS: oxyCODONE 15mg IR tab ORAL PRN ×4 (08:56→20:31)
[2019-12-01] MEDS: Albuterol ud Inhalation HHN PRN ×2 (11:43→19:58)
--- NOTE | 2019-12-01 11:59 | NUR ---
*-*DISCHARGE PLANNING*-* PATIENT HAS BEEN REFERRED TO: [facility] P: [phone] [facility] P: [phone] [facility] P: [phone] Addendum: 12/01/19 at 1328 by EVERETT ALEXANDER CM *-*DISCHARGE PLANNING*-* PATIENT HAS BEEN REFERRED TO: GISELA MOLINA P: [phone] s/w lisandra, will call back after review. [facility]: [phone] S/W LISANDRA, REQUESTING H&P NOTES, AND OPERATIVE NOTES, WILL CALL BACK AFTER REVIEW.
[2019-12-01 12:00] VITALS: BP 118/70
--- NOTE | 2019-12-01 12:28 | NUR ---
RD ASSESSMENT & RECOMMENDATIONS SEE CARE ACTIVITY FOR COMPLETE ASSESSMENT DAILY ESTIMATED NEEDS: Needs based on Surgery, obesity/ 71.8kg abw 25-28 kcals/kg 2061-0229 total kcals 1-1.5 g protein/kg 72-106 g total protein 25-30 mL/kg 1709-8164 total fluid mLs NUTRITION DIAGNOSIS: Increased kcal/prot needs R/T s/p surgery as evidenced by pt is s/p ACDF partial corpectomies C5-7, HWR c45. CURRENT DIET:SOFT, mech soft finely chopped PO DIET RECOMMENDATIONS: REGULAR -> consider advancing texture as tolerated per pt request ADDITIONAL RECOMMENDATIONS: * Standing wt for accurate CBW * CONSIDER ADVANCING DIET TEXTURE PER PT REQUEST TO IMPROVE PO ACCEPTANCE : pt denies any chewing/swallowing deficit at this time, dislikes mech soft finely chopped texture diet
--- NOTE | 2019-12-01 13:28 | NUR ---
*-*DISCHARGE PLANNING*-* PATIENT HAS BEEN REFERRED TO: MICHAEL VALENZUELA P: [phone] S/W MIRIAM, CURRENTLY IN REVIEW, CALL BACK
--- NOTE | 2019-12-01 14:16 | NUR ---
CASE MANAGEMENT:REVIEW 12/01/19 SI:s/p CERVICAL RADICULOPATHY S/P C4-C5 ACD WITH DISCOPATHY OF C5, C6, C7 11/24 98.1 70 18 118/70 97% ON RA IS:PROVENTIL HHN Q6HR/PRN OXYCODONE PO Q3HR/PRN \: 3E MED SURG UNIT PLAN: REHAB PENDING ACCEPTANCE AND FINANCIAL CLEARANCE
--- NOTE | 2019-12-01 14:19 | NUR ---
*-* INSURANCE *-* UPDATED CLINICALS AND REVIEWS HAVE BEEN FAXED TO: ALL REVIEWS/CLINICALS HAVE BEEN FAXED TO NANNETTE Santos @ [facility]#[phone] FAX#[phone]
[2019-12-01 16:00] VITALS: BP 130/81
--- NOTE | 2019-12-01 16:32 | NUR ---
*-*DISCHARGE PLANNING*-* PATIENT HAS BEEN REFERRED TO: [facility]) T: [phone] Addendum: 12/01/19 at 1709 by KO GARCÍA LVN *-*DISCHARGE PLANNING*-* PATIENT HAS BEEN REFERRED TO: ED T: [phone]
--- NOTE | 2019-12-01 19:28 | NUR ---
NURSE HAND-OFF: Important Events on Shift: Patient Status: FULL code Diet: mechanical soft diet Pending Orders: n/a Pending Results/Labs:n/a Pending MD notification:n/a Latest Vital Signs: Temperature 97.9 , Pulse 79 , B/P 130 /81 , Respiratory Rate 18 , O2 SAT 96 , Room Air, O2 Flow Rate . Vital Sign Comment: Latest Kee Fall Score: 35 Fall Risk: Medium Risk Safety Measures: Call light Within Reach, Bed Alarm Zone 1, Side Rails Side Rails x3, Bed position Low and Locked. Fall Precautions: Yellow Socks Yellow Gown Door Sign Patient Fall Education Report given to Fernanda GODINEZ. pt in stable condition. - during my shift Oxy was given around the clock q3H - ordered HHN since pt was complained for phlegm stack on her throat plan: to transfer tomorrow morning to [facility] [place], [place] [phone] (report) workers comp will arrange transportation with [facility] at [phone](P) claim# [id number] workers comp professor of communication: Lidya: [phone] or Shawn: [phone] for any dc needs or issues with transfer. - Dr. Xiao and Dr. Arellano are aware and given information of SNF.
--- NOTE | 2019-12-01 19:29 | NUR ---
NURSE NOTES: Received report from Rayne GODINEZ. Rounding is done. Patient is a/o x4. C/o pain /10 and will give medication as ordered. Sx dressing is c/d/i. Bed is on alarm, locked, and in lowest position. Call light within reach. Will continue to monitor.
[2019-12-01 20:00] VITALS: BP 146/83
[2019-12-02] VITALS: BP 127/68
[2019-12-02] MEDS: oxyCODONE 15mg IR tab ORAL PRN ×4 (02:45→16:16)
[2019-12-02 04:00] VITALS: BP 125/75
--- NOTE | 2019-12-02 07:15 | NUR ---
NURSE HAND-OFF: Important Events on Shift:[PAIN CNOTROL] Patient Status: [STABLE] Diet: [REGULAR] Pending Orders: [NONE] Pending Results/Labs:[NONE] Pending MD notification:[NONE] Latest Vital Signs: Temperature 98.0 , Pulse 73 , B/P 125 /75 , Respiratory Rate 18 , O2 SAT 94 , Room Air, O2 Flow Rate . Vital Sign Comment: [STABLE] Latest Kee Fall Score: 35 Fall Risk: Medium Risk Safety Measures: Call light Within Reach, Bed Alarm Zone 1, Side Rails Side Rails x2, Bed position Low and Locked. Fall Precautions: Yellow Socks Yellow Gown Door Sign Patient Fall Education Report given to [KYLER GODINEZ].
--- NOTE | 2019-12-02 07:18 | NUR ---
NURSE NOTES: Received report from Fernanda GODINEZ, pt a/a/o x4 seating in bed with no signs of distress or other issues at this time. surgical dressing dry and intact. pt is able to ambulate around the room with steady gait and the use of a FWW. call light within reach, bed in lowest position. side rales up x2. I will f/u as needed. plan to transfer [facility] today.
[2019-12-02 07:56] VITALS: BP 128/65
[2019-12-02] MEDS: Docusate 100mg cap ORAL SCH ×2 (08:42→18:23)
[2019-12-02] MEDS: Albuterol ud Inhalation HHN PRN (09:33)
--- NOTE | 2019-12-02 09:52 | Pulmonology Progress Note ---
Mindi Wen INFORMATION OFFICER 12/02/19 0952: Subjective ROS Limited/Unobtainable: No Allergies: Coded Allergies: MORPHINE (Verified Allergy, Severe, Hallucinations, 11/25/19) CODEINE (Verified Allergy, Intermediate, Shortness of Breath nausea, ) DIPHENHYDRAMINE (Verified Allergy, Intermediate, Rash , 11/25/19) HYDROMORPHONE (Verified Adverse Reaction, Severe, Shortness of Breath, ) Breakout Itching to Chest, upper extermities and abdomen Subjective POD #7 no signs of resp distress pulse ox stable on RA denies CP, SOB remains afebrile and hemodynamically stable reported small amount of secretion in her throat yesterday afternoon, started on HHN prn, working, improved pain controlled with Oxycodone as per pain specialism recs had BM yesterday after lactulose placement found at [facility], dc plan in progress Objective Last 24 Hour Vital Signs Date Time Temp Pulse Resp B/P (MAP) Pulse Ox O2 Delivery O2 Flow Rate FiO2 12/02/19 09:34 67 18 100 Room Air 21 74 20 93 12/02/19 09:00 Room Air 12/02/19 07:56 98.2 66 18 128/65 (86) 94 12/02/19 04:00 98.0 73 18 125/75 (92) 94 12/02/19 00:00 98.6 77 18 127/68 (87) 98 12/01/19 21:00 Room Air 12/01/19 20:00 98.5 88 18 146/83 (104) 97 12/01/19 19:58 70 18 100 Room Air 21 65 18 95 12/01/19 16:00 97.9 79 18 130/81 (97) 96 12/01/19 12:00 98.1 70 18 118/70 (86) 97 12/01/19 11:39 86 20 99 Room Air 21 83 20 96 Intake and Output 12/01/19 12/02/19 19:00 07:00 Intake Total 900 ml 400 ml Balance 900 ml 400 ml Intake Oral 900 ml 400 ml # Voids 2 # Bowel Movements 1 Objective General Appearance: awake, alert, obese female in NAD Lines, tubes and drains: peripheral HEENT: normocephalic, atraumatic, anicteric, Neck: small dressing C/D/I, Respiratory/Chest: lungs clear, no respiratory distress Cardiovascular/Chest: normal peripheral pulses, normal rate Abdomen: soft , obese, + BS Skin Exam: warm/dry, no diaphoresis Neurologic: alert, responsive Musculoskeletal: normal muscle bulk, SCD on Current Medications Medications (Trade) Dose Ordered Sig/Barbie Route PRN Reason Start Time Stop Time Status Last Admin Dose Admin Acetaminophen/ Butalbital/ Caffeine (Fioricet) 1 tab Q8H PRN ORAL headache 11/26/19 23:00 12/25/19 14:59 Al Hydroxide/Mg Hydroxide (Mylanta) 30 ml Q6H PRN ORAL gerd 11/26/19 22:00 12/26/19 21:59 Albuterol Sulfate (Proventil) 2.5 mg Q6HRT PRN HHN For Cough 12/01/19 10:00 12/06/19 09:59 12/02/19 09:33 Clonidine HCl (Catapres Tab) 0.1 mg Q8H PRN ORAL For High Blood Pressure 11/26/19 22:00 02/23/20 21:59 Docusate Sodium (Colace) 100 mg TWICE A DAY ORAL 11/27/19 09:00 12/27/19 08:59 12/02/19 08:42 Famotidine (Pepcid) 20 mg BID ORAL 11/27/19 09:00 02/25/20 08:59 12/02/19 08:42 Hydroxyzine HCl (Atarax) 25 mg Q6H PRN ORAL Itching 11/26/19 22:00 12/25/19 21:59 11/30/19 01:59 Magnesium Hydroxide (Mom) 30 ml DAILYPRN PRN ORAL Constipation 11/26/19 21:45 12/26/19 21:44 11/30/19 10:39 Ondansetron HCl (Zofran) 4 mg Q4H PRN IVP Nausea & Vomiting 11/26/19 22:00 12/25/19 21:59 Oxycodone HCl (Roxicodone) 5 mg Q3H PRN ORAL Mild Pain (Pain Scale 1-3) 11/26/19 22:00 12/03/19 21:59 11/30/19 09:20 Oxycodone HCl (Roxicodone) 10 mg Q3HR PRN ORAL Moderate Pain (Pain Scale 4-6) 11/30/19 10:00 12/07/19 09:59 12/01/19 21:34 Oxycodone HCl (Roxicodone) 15 mg Q3HR PRN ORAL Severe Pain (Pain Scale 7-10) 11/30/19 10:00 12/07/19 09:59 12/02/19 08:42 Phenol/Menthol (Chloraseptic) 1 spray Q2H PRN ORAL sore throat 11/27/19 08:00 02/25/20 07:59 Temazepam (Restoril) 15 mg HSPRN PRN ORAL Insomnia 11/26/19 22:00 12/02/19 21:59 Assessment/Plan Assessment/Plan ASSESSMENT Intubated ( for surgery) , s/p extubation Status post prior C4-C5 anterior cervical diskectomy and fusion. Advanced discopathy C5-C6, C6-C7 with left-sided vertebral artery breach. s/p revision of C4-C5 ACDF with hardware removal and C5-6-7 fusion Vertebral artery breach s/p blood transfusion Leukocytosis -trending down Mild pulmonary edema -resolved ( postop due to IV fluids and PRBC, s/p Lasix x 1-resolved shortly) Atelectasis Constipation -resolved PLAN OF CARE MS floor POD #7, s/p extensive cervical spine surgery extubated 11/25 Yepez dc 11/25 , voiding w/out difficulties drain dc by surgeon no resp distress, on RA, pulse ox stable HHN pprn, add Mucomyst to help clear secretions ( reporta some phlegm in her throat ) O2 prn titrate to keep sat >90%, pulse ox stable on RA doubt PNA, likely initial mild acute postop pulm edema, was given fluids and 2 U PRBC. no resp distress s/p Lasix x1 per cardio s/p IVF repeated CXR 11/26 -> clear lungs leukocytosis resolved s/p broad spectrum abx IS at the bedside encourage to use SCD on pain management , pain worse today - per surgeon- may need pain specialist monitor volumes remains hemodynamically stable, PT eval and Rx voided without difficulties ( after Yepez dc drain was dc small neck dressing C/ D/I , ice on PRN diet as tolerated-tolerates bowel regimen , had no BM x 7 days, s/p Lactulose 11/30--> large BM monitor HH, Hgb stable dc plan in progress. palcemetn found at SNF, pt agrees with dc plan supportive care case discussed and evaluated by supervising physician thank you for a consult! Duke Cody MD 12/02/19 1149: Subjective Allergies: Coded Allergies: MORPHINE (Verified Allergy, Severe, Hallucinations, 11/25/19) CODEINE (Verified Allergy, Intermediate, Shortness of Breath nausea, ) DIPHENHYDRAMINE (Verified Allergy, Intermediate, Rash , 11/25/19) HYDROMORPHONE (Verified Adverse Reaction, Severe, Shortness of Breath, ) Breakout Itching to Chest, upper extermities and abdomen Assessment/Plan Assessment/Plan Patient seen and examined with INFORMATION OFFICER. Agree with above A&P as it reflects our joint deliberations. Mindi Wen INFORMATION OFFICER Dec 02, 2019 09:52 Duke Cody MD Dec 02, 2019 11:49
[2019-12-02] MEDS: oxyCODONE 5mg IR tab ORAL PRN ×2 (10:56→18:23)
[2019-12-02 12:00] VITALS: BP 119/67
--- NOTE | 2019-12-02 13:30 | NUR ---
NURSE NOTES: with pt's permission called and faxed info to [facility] at [phone](P) [phone](f) s/w Quynh and Bg who will review the info and will call back once is clear by their DON as well as once they receive the JOSEFA from . RN also called and faxed info to [facility] at [phone](P) [phone](F) s/w Nesha and Matilde they stated that the sooner they can start the case will be Sunday12/08/19 since they are full for the rest of the week. RN called case sealer Lidya at [phone](P) and given info of the accepting facility and also given the info of the home health so they can send authorization for start of care. Lidya stated that she will contact the put in beat adjuster Nurys Bowles at [phone] to request JOSEFA to be fax to the SNF as well as to the . I will f/u as needed.
--- NOTE | 2019-12-02 14:39 | NUR ---
CASE MANAGEMENT:REVIEW 12/02/19 SI:s/p CERVICAL RADICULOPATHY S/P C4-C5 ACD WITH DISCOPATHY OF C5, C6, C7 11/24 98.1 70 18 119/67 98% ON RA IS:PROVENTIL HHN Q6HR/PRN OXYCODONE PO Q3HR/PRN ALBUTEROL HHN Q6HR/PRN \: 3E MED SURG UNIT PLAN: HOME WITH HOME HEALTH VS SNF
--- NOTE | 2019-12-02 15:00 | NUR ---
NURSE NOTES: Received a call from [facility] admission coordinator stating that patient has been accepted clinically, that is pending of the JOSEFA from [facility] however that have been talking to Lidya JIM CM in coordinating JOSEFA. I will f/u as needed.
--- NOTE | 2019-12-02 15:17 | Orthopedic Spine Progress Note ---
Ortho Spine - Progress Note Subjective Symptoms: c/o post-op neck pain, improved - as compared to pre-op Objective Vital Signs: Last 24 Hour Vital Signs Date Time Temp Pulse Resp B/P (MAP) Pulse Ox O2 Delivery O2 Flow Rate FiO2 12/02/19 12:00 98.1 70 18 119/67 (84) 98 12/02/19 09:34 67 18 100 Room Air 21 74 20 93 12/02/19 09:00 Room Air 12/02/19 07:56 98.2 66 18 128/65 (86) 94 12/02/19 04:00 98.0 73 18 125/75 (92) 94 12/02/19 00:00 98.6 77 18 127/68 (87) 98 12/01/19 21:00 Room Air 12/01/19 20:00 98.5 88 18 146/83 (104) 97 12/01/19 19:58 70 18 100 Room Air 21 65 18 95 12/01/19 16:00 97.9 79 18 130/81 (97) 96 I&O: Intake and Output 12/01/19 12/02/19 19:00 07:00 Intake Total 900 ml 400 ml Balance 900 ml 400 ml Intake Oral 900 ml 400 ml # Voids 2 # Bowel Movements 1 Wound: clean, intact Drains: none Neuro Status: stable Assessment Procedure Performed: ACDF partial corpectomies C5-7, HWR c45 Plan Plan: PT, pain management, discharge plan Additional Comments: Pt now cleared by PT. LOS in SNF will have limited benefit. PRO/CONS discussed with Patient. May be sent home. Try to set up Home health Agapito Xiao MD Dec 02, 2019 15:16
[2019-12-02 16:00] VITALS: BP 104/56
--- NOTE | 2019-12-02 16:48 | NUR ---
Discharge planning Patient accepted to [facility] T: [phone]~ for nurse to nurse report skilled Room# 312D Adjustor to send transportation
--- NOTE | 2019-12-02 18:39 | Cardiology Progress Note ---
Assessment/Plan Assessment/Plan 1. Status post C4-C5 ACD with discopathy of C5, C6, C7. 2. Left vertebral artery breach during surgery. 3. Multiple drug allergies. 4. s/p transfusion 5. fluid oefr load now on med surg floor walked looks comfortable on diet [facility] dvt ppx pneumatic stocking Subjective Cardiovascular: Denies: chest pain, lightheadedness, palpitations Respiratory: Denies: shortness of breath Gastrointestinal/Abdominal: Denies: abdominal pain Genitourinary: Denies: burning Subjective is walking in the room Objective Last 24 Hour Vital Signs Date Time Temp Pulse Resp B/P (MAP) Pulse Ox O2 Delivery O2 Flow Rate FiO2 12/02/19 16:00 98.5 64 20 104/56 (72) 97 12/02/19 12:00 98.1 70 18 119/67 (84) 98 12/02/19 09:34 67 18 100 Room Air 21 74 20 93 12/02/19 09:00 Room Air 12/02/19 07:56 98.2 66 18 128/65 (86) 94 12/02/19 04:00 98.0 73 18 125/75 (92) 94 12/02/19 00:00 98.6 77 18 127/68 (87) 98 12/01/19 21:00 Room Air 12/01/19 20:00 98.5 88 18 146/83 (104) 97 12/01/19 19:58 70 18 100 Room Air 21 65 18 95 General Appearance: no apparent distress, alert Neck: supple Cardiovascular: normal rate Respiratory/Chest: lungs clear Abdomen: normal bowel sounds, non tender, soft Extremities: no swelling Intake and Output 12/01/19 12/02/19 19:00 07:00 Intake Total 900 ml 400 ml Balance 900 ml 400 ml Intake Oral 900 ml 400 ml # Voids 2 # Bowel Movements 1 Ronen Chaney MD Dec 02, 2019 18:39
[2019-12-02] MEDS ORDERED: PERCOCET 10-321 EACH ORAL ×2 (18:42→18:43)
--- NOTE | 2019-12-02 19:17 | NUR ---
NURSE NOTES: Called [facility] to give report at [phone](P) s/w Lidya RN, assigned room number 312"D". Assigned MD: Dr. Weiss. transportation arranged with [facility]: [phone] to vegetable picker at 1900. Lidya RN is aware that prescription for Percocet 10/325mg was send out with the patient and asked them to please help the patient get her prescription fill out prior to d.c also given information for the workers comp case management manager to contact in case of any issues with her prescription. RN also given information for the home health that will take over once patient is ready to d/c the SNF. -Patient left the floor with no signs of distress or other issues at this time. I will f/u as needed. [facility] Address: [address] [place] [id number] Assigned room number: 312"D" Assigned MD: Carey Weiss transportation: [facility]: [phone] [facility] [phone] (P) [phone](F)
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
== END 2019-12-02 19:05 | DRG 471 ==
LOC: SDSOVERFLO 07:49 → ICU 20:16 → 3E 11-26 21:33
PROC: 30233N1 Transfusion of Nonautologous Red Blood Cells into Peripheral Vein, Percutaneous Approach (ICD-10-PCS; principal; 2019-11-25 10:30)
PROC: 0RB30ZZ Excision of Cervical Vertebral Disc, Open Approach (ICD-10-PCS; principal; 2019-11-25 10:30)
PROC: 0RP104Z Removal of Internal Fixation Device from Cervical Vertebral Joint, Open Approach (ICD-10-PCS; principal; 2019-11-25 10:30)
PROC: 0RG10A0 Fusion of Cervical Vertebral Joint with Interbody Fusion Device, Anterior Approach, Anterior Column, Open Approach (ICD-10-PCS; principal; 2019-11-25 10:30)
PROC: 03L Upper Arteries, Occlusion (ICD-10-PCS; principal; 2019-11-25 10:30)
DX: M50.822 Other cervical disc disorders at C5-C6 level (principal); J81.0 Acute pulmonary edema; J98.11 Atelectasis; I97.52 Accidental puncture and laceration of a circulatory system organ or structure during other procedure; G89.18 Other acute postprocedural pain; Z98.1 Arthrodesis status; Z88.6 Allergy status to analgesic agent; E66.9 Obesity, unspecified; Y83.8 Other surgical procedures as the cause of abnormal reaction of the patient, or of later complication, without mention of misadventure at the time of the procedure; K59.00 Constipation, unspecified; M19.90 Unspecified osteoarthritis, unspecified site; F32.9 Major depressive disorder, single episode, unspecified
CPT/HCPCS: 36415; 36600; 70498; 71045; 72040; 76000; 80053; 82248; 82803; 85025; 86850; 86900; 86901; 86920; 87081; 94002; 94003; 94150; 94640; J2250; J7030